=== PATIENT | male | born 1940 | race African-American/Black ===

== ENCOUNTER → 2016-09-24 | Outpatient (CLI) | payer MEDICARE, OTHER ==
[~2016-09-24] MED LIST: ALLO300T2; ATOR40TA52 PO; DIPH2.5T47 OR; ENO150SY SC; FAM20T OR; FURO20TA3 OR; GABA300C OR; LIS10T PO; METF-489 PO; POT10T PO; TRAM50TA2 PO; WARF5TAB71 PO
[2016-09-24 14:42] LABS: Basophils # (auto) 0.1 uL; Basophils % (auto) 0.6 % (0.0-2.0); Eosinophils # (auto) 0.2 uL; Eosinophils % (auto) 1.9 % (0.0-7.0); Hematocrit 41.5 % (41.0-53.0); Hemoglobin 13.5 g/dL (13.5-17.5); Lymphocytes # (auto) 2.5 uL; Lymphocytes % (auto) 21.7 % (10.0-50.0); Mean Corpuscular Hemoglobin 29.5 pg (28.0-32.0); Mean Corpuscular Hgb Conc. 32.6 g/dL (32.0-36.0); Mean Corpuscular Volume 90.7 fL (80.0-100.0); Mean Platelet Volume 9.2 fL (7.4-10.4); Monocytes % (auto) 8.4 % (0.0-12.0); Neutrophils # (auto) 7.7 uL; Neutrophils % (auto) 67.4 % (37.0-80.0); Platelet Count (auto) 267 10^3/uL (140-450); Red Cell Distribution Width 15.4 % (11.6-16.0); White Blood Cell 11.4 10^3/uL (4.4-10.8)
[2016-09-24 15:12] LABS: Albumin 3.7 g/dL (3.4-5.0); Bilirubin, Total 0.4 mg/dL (0.2-1.0); Potassium 4.1 mmol/L (3.5-5.1); Total Protein 7.2 g/dL (6.4-8.2); Uric Acid 4.9 mg/dL (3.5-7.2)
[2016-09-24 15:18] LABS: Urine Bilirubin Negative (Negative); Urine Blood Negative /uL (Negative); Urine Color Yellow (Yellow); Urine Glucose Normal (Normal); Urine Ketone Negative (Negative); Urine Nitrite Negative (Negative); Urine RBC 1 /hpf (0 - 3); Urine Urobilinogen Normal (Negative); Urine pH 6.5 (5.0-8.0)
== END | disposition home or self-care (01) ==
LOC: LAB 14:07
PROVIDERS: ATTEND Internal Medicine
DX: I10 Essential (primary) hypertension (principal); Z00.00 Encounter for general adult medical examination without abnormal findings; E11.9 Type 2 diabetes mellitus without complications; E55.9 Vitamin D deficiency, unspecified
CPT/HCPCS: 36415; 80053; 80061; 81001; 82043; 82306; 83036; 84443; 84550; 85025

== ENCOUNTER → 2017-09-17 | Outpatient (CLI) | payer MEDICARE, OTHER ==
[2017-09-17 11:14] LABS: Basophils # (auto) 0.1 uL; Basophils % (auto) 1.2 % (0.0-2.0); Eosinophils # (auto) 0.1 uL; Eosinophils % (auto) 1.6 % (0.0-7.0); Hematocrit 43.1 % (41.0-53.0); Lymphocytes # (auto) 2.1 uL; Lymphocytes % (auto) 24.8 % (10.0-50.0); Mean Corpuscular Hemoglobin 29.9 pg (28.0-32.0); Mean Corpuscular Hgb Conc. 32.5 g/dL (32.0-36.0); Mean Corpuscular Volume 91.9 fL (80.0-100.0); Monocytes # (auto) 0.7 uL; Monocytes % (auto) 7.5 % (0.0-12.0); Neutrophils # (auto) 5.6 uL; Neutrophils % (auto) 64.9 % (37.0-80.0); Nucleated Red Blood Cells % 0.1 %; Platelet Count (auto) 255 10^3/uL (140-450); Red Blood Cells 4.69 10^6/uL (4.5-5.90); Red Cell Distribution Width 14.3 % (11.8-14.3); White Blood Cell 8.7 10^3/uL (4.4-10.8)
[2017-09-17 12:05] LABS: Albumin 4.1 g/dL (3.4-5.0); BUN/Creatinine Ratio 12.6; Bilirubin, Total 0.8 mg/dL (0.2-1.0); Calcium 9.9 mg/dL (8.5-10.1); Potassium 4.5 mmol/L (3.5-5.1); Total Protein 7.8 g/dL (6.4-8.2)
== END | disposition home or self-care (01) ==
LOC: LAB 10:52
PROVIDERS: ATTEND Physician Assistant
DX: I10 Essential (primary) hypertension (principal); E11.9 Type 2 diabetes mellitus without complications; I26.99 Other pulmonary embolism without acute cor pulmonale; I82.531 Chronic embolism and thrombosis of right popliteal vein
CPT/HCPCS: 36415; 80053; 80061; 83036; 85025; 85379

== ENCOUNTER → 2018-05-04 | Day surgery (SDC) | payer MEDICARE, OTHER ==
[2018-04-30 13:42] LABS: Basophils # (auto) 0.1 uL; Basophils % (auto) 0.9 % (0.0-2.0); Eosinophils # (auto) 0.1 uL; Eosinophils % (auto) 1.7 % (0.0-7.0); Hemoglobin 13.9 g/dL (13.5-17.5); Lymphocytes # (auto) 2.3 uL; Lymphocytes % (auto) 29.8 % (10.0-50.0); Mean Corpuscular Hemoglobin 30.8 pg (28.0-32.0); Mean Corpuscular Hgb Conc. 33.2 g/dL (32.0-36.0); Mean Corpuscular Volume 92.9 fL (80.0-100.0); Monocytes # (auto) 0.7 uL; Monocytes % (auto) 8.6 % (0.0-12.0); Neutrophils # (auto) 4.6 uL; Platelet Count (auto) 222 10^3/uL (140-450); Red Blood Cells 4.52 10^6/uL (4.5-5.90); White Blood Cell 7.8 10^3/uL (4.4-10.8)
[2018-04-30 14:12] LABS: INR 2.46 (0.9-1.15); Partial Thromboplastin Time 37.8 sec (23.78-33.04)
[~2018-05-04] VITALS: Ht 177.8 cm; Wt 117.9 kg
[~2018-05-04] MED LIST changes: +MIDAZOLAM HCL 5 MG/ML-1ML VIAL ONE; +SODIUM CHLORIDE LOCK 10 ML ONE; +diphenhdrAMINE HCL 50 MG/1 ML VL ONE; +fentaNYL CITRATE 100 MCG/2 ML VL ONE
[2018-05-04 10:07] LABS: INR 1.07 (0.9-1.15); Partial Thromboplastin Time 27.6 sec (23.78-33.04); Prothrombin Time 11.4 sec (9.27-12.13)
[2018-05-04 11:48] VITALS: BP 160/88
== END | disposition home or self-care (01) ==
LOC: GI 08:05
PROVIDERS: ATTEND Internal Medicine Gastroenterology
DX: Z12.11 Encounter for screening for malignant neoplasm of colon (principal); D12.3 Benign neoplasm of transverse colon; K64.8 Other hemorrhoids; I82.409 Acute embolism and thrombosis of unspecified deep veins of unspecified lower extremity; E66.9 Obesity, unspecified; E11.9 Type 2 diabetes mellitus without complications; Z68.37 Body mass index [BMI] 37.0-37.9, adult; Z87.891 Personal history of nicotine dependence; Z82.49 Family history of ischemic heart disease and other diseases of the circulatory system; Z80.0 Family history of malignant neoplasm of digestive organs; Z79.01 Long term (current) use of anticoagulants; Z79.84 Long term (current) use of oral hypoglycemic drugs
CPT/HCPCS: 36415; 45380; 82962; 85025; 85610; 85730; 88305; G0500; J1200; J2250; J3010; J7030

== ENCOUNTER → 2020-10-05 | Day surgery (SDC) | payer MEDICARE, OTHER ==
[2020-10-02 11:04] LABS: Urine Bacteria FEW /hpf (None Seen); Urine Blood Negative /uL (Negative); Urine Specific Gravity 1.005 (1.001-1.035); Urine WBC <1 /hpf (0 - 3)
[2020-10-02 11:06] LABS: Basophils # (auto) 0.1 10 ^3/uL (0-0.2); Basophils % (auto) 1.3 % (0.0-2.0); Eosinophils # (auto) 0.1 10 ^3/uL (0-0.8); Eosinophils % (auto) 2.1 % (0.0-7.0); Hematocrit 41.2 % (41.0-53.0); Hemoglobin 13.9 g/dL (13.5-17.5); Lymphocytes # (auto) 1.6 10 ^3/uL (0.4-5.4); Lymphocytes % (auto) 22.1 % (10.0-50.0); Mean Corpuscular Hemoglobin 31.4 pg (28.0-32.0); Mean Corpuscular Hgb Conc. 33.7 g/dL (32.0-36.0); Monocytes # (auto) 0.4 10 ^3/uL (0-1.3); Monocytes % (auto) 6.2 % (0.0-12.0); Neutrophils # (auto) 4.9 10 ^3/uL (1.6-8.6); Neutrophils % (auto) 68.3 % (37.0-80.0); Nucleated Red Blood Cells % 0.1 %; Platelet Count (auto) 252 10^3/uL (140-450); Red Blood Cells 4.44 10^6/uL (4.5-5.90); Red Cell Distribution Width 14.5 % (11.8-14.3); White Blood Cell 7.2 10^3/uL (4.4-10.8)
[2020-10-02 11:25] LABS: Albumin 3.9 g/dL (3.4-5.0); Potassium 4.4 mmol/L (3.5-5.1)
[2020-10-02 11:30] LABS: BUN/Creatinine Ratio 9.9; INR 1.34 (0.9-1.15); Partial Thromboplastin Time 30.6 sec (23.0-31.2)
[2020-10-02 11:31] LABS: Bilirubin, Total 0.7 mg/dL (0.2-1.0); Total Protein 7.8 g/dL (6.4-8.2)
[~2020-10-05] VITALS: Ht 177.8 cm; Wt 122.9 kg
[~2020-10-05] MED LIST changes: +AMLO-489 PO; -ATOR40TA52 PO; +BENZ200C64 PO; +CIPROFLOXACIN 400MG/200ML 200 ML IV ONE; -DIPH2.5T47 OR; +DexAMETHasone SOD PHOS 10MG/1ML VIAL INJ ONE; -ENO150SY SC; -FAM20T OR; +GABA-339 PO; -GABA300C OR; +LABETALOL HCL 5 MG/ML 4ML SYRINGE IV PRN; -LIS10T PO; +METO-169 PO; +MIDAZOLAM HCL 1MG/1ML-2 ML VIAL IV PRN; +MIDAZOLAM HCL 1MG/1ML-2 ML VIAL ONE; -MIDAZOLAM HCL 5 MG/ML-1ML VIAL ONE; +MORPHINE SULFATE 4 MG/ML SYR/VIAL IV PRN; +ONDANSETRON HCL 4 MG/2 ML VIAL IV PRN; +PROPOFOL 10 MG/ML 20 ML IV ONE; +SACU1TAB PO; -SODIUM CHLORIDE LOCK 10 ML ONE; -TRAM50TA2 PO; -diphenhdrAMINE HCL 50 MG/1 ML VL ONE; +ePHEDrine SULFATE 50 MG/ML AMP IV PRN
[2020-10-05 13:55] VITALS: BP 137/91
== END | disposition home or self-care (01) ==
LOC: SUR 09:40
PROVIDERS: ATTEND Urology
DX: R97.20 Elevated prostate specific antigen [PSA] (principal); E66.9 Obesity, unspecified; E11.39 Type 2 diabetes mellitus with other diabetic ophthalmic complication; I10 Essential (primary) hypertension; I25.10 Atherosclerotic heart disease of native coronary artery without angina pectoris; Z20.822 Contact with and (suspected) exposure to COVID-19; Z98.890 Other specified postprocedural states; Z79.899 Other long term (current) drug therapy; Z86.718 Personal history of other venous thrombosis and embolism; Z68.38 Body mass index [BMI] 38.0-38.9, adult; Z87.891 Personal history of nicotine dependence
CPT/HCPCS: 36415; 55700; 80053; 81001; 82962; 85025; 85610; 85730; 88305; 88342; J0744; J1100; J2250; J2704; J3010; U0003; 76872

== ENCOUNTER → 2021-03-08 | Day surgery (SDC) | payer MEDICARE, OTHER ==
[2021-03-05 12:54] LABS: Urine WBC None Seen /hpf (0 - 3)
[2021-03-05 12:59] LABS: Basophils # (auto) 0.1 10 ^3/uL (0-0.2); Basophils % (auto) 1.1 % (0.0-2.0); Eosinophils # (auto) 0.1 10 ^3/uL (0-0.8); Eosinophils % (auto) 0.9 % (0.0-7.0); Hematocrit 39.5 % (41.0-53.0); Hemoglobin 13.2 g/dL (13.5-17.5); Lymphocytes % (auto) 20.4 % (10.0-50.0); Mean Corpuscular Hemoglobin 30.6 pg (28.0-32.0); Mean Corpuscular Hgb Conc. 33.3 g/dL (32.0-36.0); Mean Corpuscular Volume 91.9 fL (80.0-100.0); Monocytes # (auto) 0.7 10 ^3/uL (0-1.3); Neutrophils # (auto) 6.8 10 ^3/uL (1.6-8.6); Neutrophils % (auto) 70.6 % (37.0-80.0); Nucleated Red Blood Cells % 0.1 %; Red Cell Distribution Width 15.3 % (11.8-14.3); White Blood Cell 9.6 10^3/uL (4.4-10.8)
[2021-03-05 13:05] LABS: Urine Bacteria NONE SEEN /hpf (None Seen); Urine Blood Negative /uL (Negative); Urine Specific Gravity 1.008 (1.001-1.035)
[2021-03-05 13:17] LABS: Albumin 3.4 g/dL (3.4-5.0); Potassium 4.5 mmol/L (3.5-5.1)
[2021-03-05 13:21] LABS: BUN/Creatinine Ratio 11.3; Bilirubin, Total 0.7 mg/dL (0.2-1.0); Total Protein 7.5 g/dL (6.4-8.2)
[~2021-03-08] VITALS: Ht 177.8 cm; Wt 123.8 kg
[~2021-03-08] MED LIST changes: +ASCO500T11 PO; +ATO40T PO; +BUDE1AER6 IN; +CALC667C5 PO; +CHOL20007 OR; -CIPROFLOXACIN 400MG/200ML 200 ML IV ONE; +DIGO0.12 PO; -DexAMETHasone SOD PHOS 10MG/1ML VIAL INJ ONE; -LABETALOL HCL 5 MG/ML 4ML SYRINGE IV PRN; +LOPE1TAB9 PO; -METO-169 PO; +METO-289 PO; -MIDAZOLAM HCL 1MG/1ML-2 ML VIAL IV PRN; -MIDAZOLAM HCL 1MG/1ML-2 ML VIAL ONE; +MIDAZOLAM HCL 5 MG/ML-1ML VIAL ONE; -MORPHINE SULFATE 4 MG/ML SYR/VIAL IV PRN; -ONDANSETRON HCL 4 MG/2 ML VIAL IV PRN; +OXYB10GE TD; -PROPOFOL 10 MG/ML 20 ML IV ONE; +SODIUM CHLORIDE LOCK 10 ML ONE; +diphenhdrAMINE HCL 50 MG/1 ML VL ONE; -ePHEDrine SULFATE 50 MG/ML AMP IV PRN
[2021-03-08 10:10] VITALS: BP 167/95
== END | disposition home or self-care (01) ==
LOC: GI 08:03
PROVIDERS: ATTEND Internal Medicine Gastroenterology
DX: Z12.11 Encounter for screening for malignant neoplasm of colon (principal); D12.4 Benign neoplasm of descending colon; D12.7 Benign neoplasm of rectosigmoid junction; D12.8 Benign neoplasm of rectum; D12.3 Benign neoplasm of transverse colon; I10 Essential (primary) hypertension; E11.42 Type 2 diabetes mellitus with diabetic polyneuropathy; E78.00 Pure hypercholesterolemia, unspecified; M19.90 Unspecified osteoarthritis, unspecified site; M10.9 Gout, unspecified; Z95.0 Presence of cardiac pacemaker; Z98.41 Cataract extraction status, right eye; Z98.42 Cataract extraction status, left eye; J44.9 Chronic obstructive pulmonary disease, unspecified; Z87.891 Personal history of nicotine dependence; Z20.822 Contact with and (suspected) exposure to COVID-19
CPT/HCPCS: 36415; 45380; 45385; 80053; 81001; 82962; 85025; 88305; J1200; J2250; J3010; J7030; U0003; 99153; G0500

== ENCOUNTER → 2022-01-24 | Day surgery (SDC) | payer MEDICARE, OTHER ==
[2022-01-24] VITALS (7 sets, daily range): BP systolic 134–161; BP diastolic 80–95
[~2022-01-24] VITALS: Ht 177.8 cm; Wt 117.9 kg
[~2022-01-24] MED LIST changes: +ANGIOMAX 250 MG VIAL IV ONE; +CICL8SOL3 EX; +CYAN1TAB11 PO; +ECON1CRE6 TOP; +IOHEXOL 350 MG/ML 100ML IJ ONE; +LACT12CR17 EX; +LIDOCAINE 2%HCL (LOCAL ANESTH.) INJ 10ml MDV ONE; +MIDAZOLAM HCL 2MG/2ML 2ml VIAL (1mg/ml) ONE; -MIDAZOLAM HCL 5 MG/ML-1ML VIAL ONE; +SODIUM CHL 0.9% 0 ML ONE; -SODIUM CHLORIDE LOCK 10 ML ONE; +[UNRECOGNIZED DRUG - CODE] PO; -diphenhdrAMINE HCL 50 MG/1 ML VL ONE
== END | disposition home or self-care (01) ==
LOC: CATH 07:47
PROVIDERS: ATTEND Internal Medicine Cardiovascular Disease
DX: R94.39 Abnormal result of other cardiovascular function study (principal); I25.10 Atherosclerotic heart disease of native coronary artery without angina pectoris; I11.0 Hypertensive heart disease with heart failure; I50.9 Heart failure, unspecified; E78.5 Hyperlipidemia, unspecified; Z87.891 Personal history of nicotine dependence; E11.9 Type 2 diabetes mellitus without complications; Z82.49 Family history of ischemic heart disease and other diseases of the circulatory system; Z80.8 Family history of malignant neoplasm of other organs or systems; Z20.822 Contact with and (suspected) exposure to COVID-19
CPT/HCPCS: 93452; 93567; C1894; J1644; J2001; J2250; J3010; J7030; Q9967; U0003

== ENCOUNTER → 2022-03-18 | Outpatient (CLI) | payer MEDICARE, OTHER ==
[~2022-03-18] MED LIST changes: -ANGIOMAX 250 MG VIAL IV ONE; -IOHEXOL 350 MG/ML 100ML IJ ONE; -LIDOCAINE 2%HCL (LOCAL ANESTH.) INJ 10ml MDV ONE; -MIDAZOLAM HCL 2MG/2ML 2ml VIAL (1mg/ml) ONE; -SODIUM CHL 0.9% 0 ML ONE; -fentaNYL CITRATE 100 MCG/2 ML VL ONE
[2022-03-18 13:22] LABS: Basophils # (auto) 0.1 10 ^3/uL (0-0.2); Basophils % (auto) 0.8 % (0.0-2.0); Eosinophils # (auto) 0.2 10 ^3/uL (0-0.8); Eosinophils % (auto) 2.2 % (0.0-7.0); Hematocrit 37.9 % (41.0-53.0); Hemoglobin 12.1 g/dL (13.5-17.5); Lymphocytes # (auto) 1.3 10 ^3/uL (0.4-5.4); Mean Corpuscular Hemoglobin 29.7 pg (28.0-32.0); Mean Corpuscular Volume 92.8 fL (80.0-100.0); Monocytes # (auto) 0.5 10 ^3/uL (0-1.3); Monocytes % (auto) 6.4 % (0.0-12.0); Neutrophils # (auto) 5.4 10 ^3/uL (1.6-8.6); Neutrophils % (auto) 72.6 % (37.0-80.0); Red Blood Cells 4.08 10^6/uL (4.5-5.90); Red Cell Distribution Width 14.3 % (11.8-14.3); White Blood Cell 7.4 10^3/uL (4.4-10.8)
[2022-03-18 13:53] LABS: Albumin 3.3 g/dL (3.4-5.0)
[2022-03-18 14:04] LABS: BUN/Creatinine Ratio 10.9; Bilirubin, Total 0.4 mg/dL (0.2-1.0); Calcium 9.4 mg/dL (8.5-10.1); Total Protein 7.2 g/dL (6.4-8.2)
[2022-03-18 15:52] LABS: Free T4 (Free Thyroxine) 1.1 ng/dL (0.89-1.76)
[2022-03-18 15:53] LABS: Prostate Specific Antigen 0.06 ng/mL (0.0-4.0)
== END | disposition home or self-care (01) ==
LOC: LAB 11:37
PROVIDERS: ATTEND Nurse Practitioner Family
DX: C61 Malignant neoplasm of prostate (principal); I10 Essential (primary) hypertension; E11.42 Type 2 diabetes mellitus with diabetic polyneuropathy; E78.00 Pure hypercholesterolemia, unspecified; Z00.00 Encounter for general adult medical examination without abnormal findings
CPT/HCPCS: 36415; 80053; 80061; 83036; 84153; 84439; 84443; 85025

== ENCOUNTER → 2022-04-22 | Outpatient (CLI) | payer MEDICARE, OTHER ==
[~2022-04-22] MED LIST changes: +FUROSEMIDE 100 MG/10ML VIAL IV ONE; +FUROSEMIDE 20 MG/2 ML VIAL ONE; +FUROSEMIDE INJECTION 10 ML ONE; +POTASSIUM CHL 20 Meq TABLET PO ONE
[2022-04-22 11:03] VITALS: BP 140/80
[2022-04-22 11:54] VITALS: BP 147/83
== END | disposition home or self-care (01) ==
LOC: CHF HDHVI 11:07
PROVIDERS: ATTEND Internal Medicine Cardiovascular Disease
DX: I87.313 Chronic venous hypertension (idiopathic) with ulcer of bilateral lower extremity (principal); I10 Essential (primary) hypertension; E78.00 Pure hypercholesterolemia, unspecified; E11.42 Type 2 diabetes mellitus with diabetic polyneuropathy; Z85.46 Personal history of malignant neoplasm of prostate
CPT/HCPCS: 96374; G0463; J1940

== ENCOUNTER → 2022-04-22 | Outpatient (CLI) | payer MEDICARE, OTHER ==
[~2022-04-22] MED LIST changes: -FUROSEMIDE 100 MG/10ML VIAL IV ONE; -FUROSEMIDE 20 MG/2 ML VIAL ONE; -FUROSEMIDE INJECTION 10 ML ONE; -POTASSIUM CHL 20 Meq TABLET PO ONE
== END | disposition home or self-care (01) ==
LOC: LAB 12:30
PROVIDERS: ATTEND Urology
DX: C61 Malignant neoplasm of prostate (principal)
CPT/HCPCS: 84153

== ENCOUNTER → 2022-04-23 | Outpatient (CLI) | payer MEDICARE, OTHER | END | disposition home or self-care (01) | LOC: Rad HDHVI 12:53 | PROVIDERS: ATTEND Internal Medicine Cardiovascular Disease | DX: I08.8 Other rheumatic multiple valve diseases (principal); R06.02 Shortness of breath; I10 Essential (primary) hypertension | CPT/HCPCS: 93306 ==

== ENCOUNTER → 2022-04-29 | Outpatient (CLI) | payer MEDICARE, OTHER | END | disposition home or self-care (01) | LOC: Rad HDHVI 11:20 | PROVIDERS: ATTEND Internal Medicine Cardiovascular Disease | DX: I65.23 Occlusion and stenosis of bilateral carotid arteries (principal); I10 Essential (primary) hypertension | CPT/HCPCS: 93880 ==

== ENCOUNTER → 2022-05-02 | Outpatient (CLI) | payer MEDICARE, OTHER ==
[~2022-05-02] VITALS: Ht 175.3 cm; Wt 119.7 kg
[~2022-05-02] MED LIST changes: +ADENOSINE 101 MG in GIVE UN-DILUTED 0 ML IV ONE; +ADENOSINE 90 MG/30 ML INJ IV ONE
== END | disposition home or self-care (01) ==
LOC: Rad HDHVI 08:40
PROVIDERS: ATTEND Internal Medicine Cardiovascular Disease
DX: I25.10 Atherosclerotic heart disease of native coronary artery without angina pectoris (principal); I11.0 Hypertensive heart disease with heart failure; I50.33 Acute on chronic diastolic (congestive) heart failure; E11.9 Type 2 diabetes mellitus without complications; E78.00 Pure hypercholesterolemia, unspecified; Z82.49 Family history of ischemic heart disease and other diseases of the circulatory system
CPT/HCPCS: 78452; 93005; 96374; 96375; A9500; J0153

== ENCOUNTER → 2022-07-02 | Outpatient (CLI) | payer MEDICARE, OTHER ==
[~2022-07-02] MED LIST changes: -ADENOSINE 101 MG in GIVE UN-DILUTED 0 ML IV ONE; -ADENOSINE 90 MG/30 ML INJ IV ONE
[2022-07-02 13:08] LABS: Basophils # (auto) 0.1 10 ^3/uL (0-0.2); Basophils % (auto) 0.9 % (0.0-2.0); Eosinophils # (auto) 0.1 10 ^3/uL (0-0.8); Eosinophils % (auto) 1.8 % (0.0-7.0); Hematocrit 38.1 % (41.0-53.0); Hemoglobin 12.3 g/dL (13.5-17.5); Lymphocytes # (auto) 1.4 10 ^3/uL (0.4-5.4); Lymphocytes % (auto) 19.1 % (10.0-50.0); Mean Corpuscular Hemoglobin 29.9 pg (28.0-32.0); Mean Corpuscular Hgb Conc. 32.3 g/dL (32.0-36.0); Mean Corpuscular Volume 92.7 fL (80.0-100.0); Monocytes # (auto) 0.6 10 ^3/uL (0-1.3); Monocytes % (auto) 7.8 % (0.0-12.0); Neutrophils # (auto) 5.3 10 ^3/uL (1.6-8.6); Neutrophils % (auto) 70.4 % (37.0-80.0); Red Cell Distribution Width 15.6 % (11.8-14.3); White Blood Cell 7.5 10^3/uL (4.4-10.8)
[2022-07-02 13:12] LABS: Albumin 3.8 g/dL (3.4-5.0); BUN/Creatinine Ratio 15.6; Calcium 9.5 mg/dL (8.5-10.1); Potassium 4.9 mmol/L (3.5-5.1)
[2022-07-02 13:16] LABS: Bilirubin, Total 0.6 mg/dL (0.2-1.0); Total Protein 6.8 g/dL (6.4-8.2)
[2022-07-02 13:21] LABS: Free T4 (Free Thyroxine) 1.09 ng/dL (0.89-1.76); Prostate Specific Antigen 0.06 ng/mL (0.0-4.0)
[2022-07-02 13:23] LABS: Urine Blood Negative /uL (Negative)
== END | disposition home or self-care (01) ==
LOC: LAB 11:19
PROVIDERS: ATTEND Internal Medicine Cardiovascular Disease
DX: I10 Essential (primary) hypertension (principal); E55.9 Vitamin D deficiency, unspecified
CPT/HCPCS: 36415; 80053; 80061; 81003; 82306; 82607; 83036; 84153; 84403; 84439; 84443; 85025

== ENCOUNTER → 2022-07-19 | Outpatient (CLI) | payer MEDICARE, OTHER | END | disposition home or self-care (01) | LOC: LAB 11:30 | PROVIDERS: ATTEND Urology | DX: C61 Malignant neoplasm of prostate (principal) | CPT/HCPCS: 84154 ==

== ENCOUNTER → 2022-10-16 | Outpatient (CLI) | payer MEDICARE, OTHER | END | disposition home or self-care (01) | LOC: LAB 11:56 | PROVIDERS: ATTEND Urology | DX: C61 Malignant neoplasm of prostate (principal) | CPT/HCPCS: 84153 ==

== ENCOUNTER → 2023-01-20 | Outpatient (CLI) | payer MEDICARE, OTHER ==
[~2023-01-20] MED LIST changes: -AMLO-489 PO; +AMLO1TAB22 PO; +CICL8SOL21 EX; -CICL8SOL3 EX; +WARF-66 PO; -WARF5TAB71 PO
== END | disposition home or self-care (01) ==
LOC: Rad HDHVI 14:51
PROVIDERS: ATTEND Internal Medicine Cardiovascular Disease
DX: I08.3 Combined rheumatic disorders of mitral, aortic and tricuspid valves (principal); I11.9 Hypertensive heart disease without heart failure; Z95.0 Presence of cardiac pacemaker
CPT/HCPCS: 93306

== ENCOUNTER → 2023-03-10 | Outpatient (CLI) | payer MEDICARE, OTHER | END | disposition home or self-care (01) | LOC: Rad HDHVI 15:55 | PROVIDERS: ATTEND Internal Medicine Cardiovascular Disease | DX: M16.12 Unilateral primary osteoarthritis, left hip (principal) | CPT/HCPCS: 73700 ==

== ENCOUNTER → 2023-07-16 | Outpatient (CLI) | payer MEDICARE, OTHER ==
[~2023-07-16] MED LIST changes: +ALLO300T2 PO; +ASCO500C49 PO; +ATOR40TA52 PO; +CHOL1TAB42 PO; +FURO40TA4 PO; +LISI40TA16 PO; +LOPE2CAP PO; +METF-370 PO; +METO-6 PO; +MULTCAP45 PO; +POTA10TA51 PO; +WARF-113 PO
== END | disposition home or self-care (01) ==
LOC: Rad HDHVI 09:38
PROVIDERS: ATTEND Internal Medicine Cardiovascular Disease
DX: I65.23 Occlusion and stenosis of bilateral carotid arteries (principal); I10 Essential (primary) hypertension
CPT/HCPCS: 93880

== ENCOUNTER → 2023-08-04 | Outpatient (CLI) | payer MEDICARE, OTHER ==
[~2023-08-04] VITALS: Ht 177.8 cm; Wt 112.9 kg
[~2023-08-04] MED LIST changes: +ADENOSINE 90 MG/30 ML INJ IV ONE; +ADENOSINE 95 MG in GIVE UN-DILUTED 0 ML IV ONE
== END | disposition home or self-care (01) ==
LOC: Rad HDHVI 09:14
PROVIDERS: ATTEND Internal Medicine Cardiovascular Disease
DX: I11.0 Hypertensive heart disease with heart failure (principal); I50.9 Heart failure, unspecified; E11.42 Type 2 diabetes mellitus with diabetic polyneuropathy; I82.402 Acute embolism and thrombosis of unspecified deep veins of left lower extremity; I48.0 Paroxysmal atrial fibrillation; I26.99 Other pulmonary embolism without acute cor pulmonale; E78.00 Pure hypercholesterolemia, unspecified
CPT/HCPCS: 78452; 93005; 96374; 96375; A9500; J0153

== ENCOUNTER → 2023-09-01 | Outpatient (CLI) | payer MEDICARE, OTHER ==
[~2023-09-01] MED LIST changes: -ADENOSINE 90 MG/30 ML INJ IV ONE; -ADENOSINE 95 MG in GIVE UN-DILUTED 0 ML IV ONE
[2023-09-01 11:40] LABS: Alanine Aminotransferase 12 U/L (7-40); Albumin 4.4 g/dL (3.2-4.8); Alkaline Phosphatase 115 U/L (46-116); Anion Gap 7 (5-15); Aspartate Aminotransferase 15 U/L (13-40); BUN/Creatinine Ratio 10.7 (10.0-20.0); Blood Urea Nitrogen 14 mg/dL (9-23); Carbon Dioxide 27 mmol/L (20-30); Chloride 108 mmol/L (98-107); Cholesterol 92 mg/dL (< 200); Glucose 153 mg/dL (74-106); LDL Cholesterol 34 mg/dL (< 100); Potassium 4.4 mmol/L (3.5-5.1); Sodium 142 mmol/L (136-145); Triglycerides 106 mg/dL (< 150)
[2023-09-01 11:41] LABS: Bilirubin, Total 0.7 mg/dL (0.2-1.0); HDL Cholesterol 39 mg/dL (40-59); Total Protein 6.6 g/dL (5.7-8.2)
[2023-09-01 12:54] LABS: Creatinine, Urine 30.36 mg/dL (30.0-125.0)
== END | disposition home or self-care (01) ==
LOC: LAB 10:38
PROVIDERS: ATTEND Nurse Practitioner Family
DX: E11.42 Type 2 diabetes mellitus with diabetic polyneuropathy (principal); I10 Essential (primary) hypertension
CPT/HCPCS: 36415; 80053; 80061; 82043; 82570; 83036; 84439; 84443

== ENCOUNTER → 2024-04-15 | Outpatient (CLI) | payer MEDICARE, OTHER ==
[~2024-04-15] MED LIST changes: -ATO40T PO; +ATOR-507 PO; +POTA-36 PO; -POTA10TA51 PO
[2024-04-15 12:10] LABS: Basophils # (auto) 0.1 10 ^3/uL (0-0.2); Basophils % (auto) 0.8 % (0.0-2.0); Eosinophils # (auto) 0.1 10 ^3/uL (0-0.8); Eosinophils % (auto) 1.1 % (0.0-7.0); Hematocrit 34.8 % (41.0-53.0); Hemoglobin 11.6 g/dL (13.5-17.5); Lymphocytes # (auto) 0.9 10 ^3/uL (0.4-5.4); Lymphocytes % (auto) 11.5 % (10.0-50.0); Mean Corpuscular Hgb Conc. 33.4 g/dL (32.0-36.0); Mean Corpuscular Volume 95.8 fL (80.0-100.0); Monocytes # (auto) 0.5 10 ^3/uL (0-1.3); Monocytes % (auto) 6.4 % (0.0-12.0); Neutrophils # (auto) 6.4 10 ^3/uL (1.6-8.6); Neutrophils % (auto) 80.2 % (37.0-80.0); Platelet Count (auto) 254 10^3/uL (140-450); Red Blood Cells 3.63 10^6/uL (4.5-5.90); Red Cell Distribution Width 15.2 % (11.8-14.3)
[2024-04-15 12:45] LABS: Urine Blood Negative /uL (Negative); Urine Clarity Clear (Clear); Urine Color Light-Yellow (Yellow); Urine Protein, UAD TRACE (Negative); Urine Specific Gravity 1.005 (1.001-1.035); Urine Urobilinogen Normal (Negative); Urine pH 5.5 (5.0-9.0)
[2024-04-15 13:47] LABS: Alanine Aminotransferase 16 U/L (7-40); Alkaline Phosphatase 127 U/L (46-116); Anion Gap 11 (5-15); BUN/Creatinine Ratio 8.8 (10.0-20.0); Blood Urea Nitrogen 13 mg/dL (9-23); Calcium 10.1 mg/dL (8.7-10.4); Carbon Dioxide 23 mmol/L (20-31); Chloride 109 mmol/L (98-107); Glucose 145 mg/dL (74-106); LDL Cholesterol 37 mg/dL (< 100); Potassium 4.1 mmol/L (3.5-5.1); Sodium 143 mmol/L (136-145); Triglycerides 154 mg/dL (< 150)
[2024-04-15 13:48] LABS: Albumin 4.5 g/dL (3.2-4.8); Aspartate Aminotransferase 13 U/L (13-40); Cholesterol 97 mg/dL (< 200); HDL Cholesterol 38 mg/dL (40-59)
[2024-04-15 13:49] LABS: Bilirubin, Direct 0.2 mg/dL (<0.3); Bilirubin, Total 0.7 mg/dL (0.2-1.0)
== END | disposition home or self-care (01) ==
LOC: LAB 11:50
PROVIDERS: ATTEND Internal Medicine Cardiovascular Disease
DX: C61 Malignant neoplasm of prostate (principal); I10 Essential (primary) hypertension; E11.9 Type 2 diabetes mellitus without complications; D51.3 Other dietary vitamin B12 deficiency anemia; D64.9 Anemia, unspecified; R00.2 Palpitations; R53.1 Weakness; R30.0 Dysuria
CPT/HCPCS: 36415; 80048; 80061; 80076; 81003; 83036; 84403; 84439; 84443; 85025

== ENCOUNTER → 2024-06-14 | Outpatient (CLI) | payer MEDICARE, OTHER ==
[2024-06-15 09:07] LABS: PSA Free <0.02 ng/mL; Prostate Specific Antigen <0.1 ng/mL (0.0-4.0)
== END | disposition home or self-care (01) ==
LOC: LAB 11:03
PROVIDERS: ATTEND Urology
DX: C61 Malignant neoplasm of prostate (principal)
CPT/HCPCS: 84154

== ENCOUNTER → 2024-09-27 | Outpatient (CLI) | payer MEDICARE, OTHER ==
[2024-09-27 11:18] LABS: Basophils # (auto) 0.1 10 ^3/uL (0-0.2); Basophils % (auto) 0.7 % (0.0-2.0); Eosinophils # (auto) 0 10 ^3/uL (0-0.8); Eosinophils % (auto) 0.6 % (0.0-7.0); Hematocrit 34.7 % (41.0-53.0); Hemoglobin 11.5 g/dL (13.5-17.5); Lymphocytes # (auto) 0.8 10 ^3/uL (0.4-5.4); Lymphocytes % (auto) 11.1 % (10.0-50.0); Mean Corpuscular Hgb Conc. 33.1 g/dL (32.0-36.0); Mean Corpuscular Volume 93.8 fL (80.0-100.0); Monocytes # (auto) 0.5 10 ^3/uL (0-1.3); Monocytes % (auto) 6.5 % (0.0-12.0); Neutrophils # (auto) 5.9 10 ^3/uL (1.6-8.6); Neutrophils % (auto) 81.1 % (37.0-80.0); Platelet Count (auto) 240 10^3/uL (140-450); Red Cell Distribution Width 15.4 % (11.8-14.3); White Blood Cell 7.3 10^3/uL (4.4-10.8)
[2024-09-27 11:55] LABS: Alanine Aminotransferase 12 U/L (7-40); Albumin 4.7 g/dL (3.2-4.8); Alkaline Phosphatase 116 U/L (46-116); Anion Gap 10 (5-15); Blood Urea Nitrogen 14 mg/dL (9-23); Calcium 10.4 mg/dL (8.7-10.4); Carbon Dioxide 24 mmol/L (20-31); Cholesterol 110 mg/dL (< 200); LDL Cholesterol 49 mg/dL (< 100); Potassium 4.1 mmol/L (3.5-5.1); Sodium 143 mmol/L (136-145); Total Protein 7.2 g/dL (5.7-8.2); Triglycerides 113 mg/dL (< 150)
[2024-09-27 11:56] LABS: Aspartate Aminotransferase 11 U/L (13-40); Bilirubin, Total 0.7 mg/dL (0.2-1.0); Chloride 109 mmol/L (98-107); Glucose 158 mg/dL (74-106); HDL Cholesterol 37 mg/dL (40-59)
[2024-09-27 12:55] LABS: Creatinine, Urine 122.04 mg/dL (30.0-125.0)
== END | disposition home or self-care (01) ==
LOC: LAB 11:00
PROVIDERS: ATTEND Nurse Practitioner Family
DX: E11.9 Type 2 diabetes mellitus without complications (principal); E78.00 Pure hypercholesterolemia, unspecified; R35.1 Nocturia
CPT/HCPCS: 36415; 80053; 80061; 82043; 82570; 84153; 84443; 85025

== ENCOUNTER 2025-02-16 07:45 | Outpatient (CLI) | payer MEDICARE, OTHER ==
[~2025-02-16] VITALS: Ht 177.8 cm; Wt 109.8 kg
[2025-02-16] MEDS: REGADENOSON 0.4 MG/5 ML SYRG IV ONE ×2 (09:08→09:52)
== END 2025-02-16 17:00 | disposition home or self-care (01) ==
LOC: XYW 07:45
PROVIDERS: ATTEND Internal Medicine
DX: Z01.810 Encounter for preprocedural cardiovascular examination (principal); M16.12 Unilateral primary osteoarthritis, left hip; I48.0 Paroxysmal atrial fibrillation; I10 Essential (primary) hypertension; E66.9 Obesity, unspecified; E11.9 Type 2 diabetes mellitus without complications
CPT/HCPCS: 93017; J2785

== ENCOUNTER 2025-02-28 06:06 | Inpatient (IN) | payer MEDICARE, OTHER ==
[2025-02-25 09:40] LABS: Hematocrit 32.8 % (41.0-53.0); Hemoglobin 10.9 g/dL (13.5-17.5); Mean Corpuscular Hemoglobin 31.7 pg (28.0-32.0); Mean Corpuscular Volume 95.3 fL (80.0-100.0); Nucleated Red Blood Cells % 0.0 %
[2025-02-25 09:46] LABS: Urine Protein, UAD 1+ (Negative)
[2025-02-25 09:51] LABS: INR 1.97 (0.9-1.15); Partial Thromboplastin Time 32.8 SEC (24.5-34.5); Prothrombin Time 19.5 sec (9.3-11.8)
[2025-02-25 10:02] LABS: Alanine Aminotransferase 12 U/L (7-40); Albumin 4.5 g/dL (3.2-4.8); Alkaline Phosphatase 113 U/L (46-116); Anion Gap 10 (5-15); BUN/Creatinine Ratio 8.5 (10.0-20.0); Blood Urea Nitrogen 13 mg/dL (9-23); Calcium 9.6 mg/dL (8.7-10.4); Carbon Dioxide 23 mmol/L (20-31); Potassium 3.9 mmol/L (3.5-5.1); Total Protein 6.7 g/dL (5.7-8.2)
[2025-02-25 10:03] LABS: Bilirubin, Total 0.7 mg/dL (0.2-1.0); Chloride 113 mmol/L (98-107); Glucose 161 mg/dL (74-106); Sodium 146 mmol/L (136-145)
[2025-02-28] VITALS (8 sets, daily range): BP systolic 102–127; BP diastolic 65–89; PULSE 62–80; RESP 12–20; TEMP 97.7; O2SAT 94–99
[~2025-02-28] VITALS: Ht 177.8 cm; Wt 108.0 kg
[~2025-02-28 06:06] MED LIST changes: +ACET-1080 PO; -ALLO300T2; -AMLO1TAB22 PO; +AMLO1TAB23 PO; -ASCO500C49 PO; -ATOR40TA52 PO; -BENZ200C64 PO; -BUDE1AER6 IN; -CHOL20007 OR; -CICL8SOL21 EX; -ECON1CRE6 TOP; -FURO40TA4 PO; -LACT12CR17 EX; -LISI40TA16 PO; -LOPE1TAB9 PO; -METF-370 PO; -METO-289 PO; +MULT-688 PO; -OXYB10GE TD; -POTA-36 PO; +TOLT1CAP29 PO; +TRAM-626 PO; -WARF-113 PO
[2025-02-28] MEDS ORDERED: ONDANSETRON HCL 4 MG/2 ML VIAL ONE (07:20)
[2025-02-28] MEDS ORDERED: fentaNYL CITRATE 100 MCG/2 ML VL ONE (07:20)
[2025-02-28] MEDS ORDERED: MIDAZOLAM HCL 2MG/2ML 2ml VIAL (1mg/ml) ONE (07:20)
[2025-02-28] MEDS ORDERED: MORPHINE SULF PF 5 MG/10 ML VIAL ONE (07:20)
[2025-02-28] MEDS ORDERED: SODIUM CHLORIDE LOCK 10 ML ONE (07:20)
[2025-02-28] MEDS ORDERED: LIDOCAINE 1% INJ PF 5ML AMP ONE (07:20)
[2025-02-28] MEDS ORDERED: BUPIVACAINE/DEXTROSE MPF 0.75% 2 ML AMP IT ONE (07:20)
[2025-02-28] MEDS ORDERED: KETAMINE 50mg/ML 10ml Vial 10 ML ONE (07:20)
[2025-02-28] MEDS: CELECOXIB 100 MG CAP PO ONE (08:00)
[2025-02-28] MEDS: ACETAMINOPHEN IV 1000 MG/100ML (10MG/ML) IV ONE (08:00)
[2025-02-28] MEDS: PREGABALIN CAPSULE 75 MG CAP PO ONE (08:00)
[2025-02-28 08:04] LABS: INR 1.73 (0.9-1.15); Partial Thromboplastin Time 30.7 SEC (24.5-34.5); Prothrombin Time 17.4 sec (9.3-11.8)
[2025-02-28] MEDS ORDERED: LIDOCAINE HCL 2% TOP JELLY 5ML TOP ONE (08:15)
[2025-02-28] MEDS: ceFAZolin 2 GM/D5W50ml 50 ML IV ONE (08:20)
[2025-02-28] MEDS: CEFEPIME 1GM/50ML 50 ML IV ONE (08:30)
[2025-02-28] MEDS: MORPHINE SULF PF 5 MG/10 ML VIAL ONE (09:18)
[2025-02-28] MEDS: BUPIVACAINE 0.25% INJ 50ML VIAL ONE (09:18)
[2025-02-28] MEDS: KETOROLAC TROMETH 30 MG/ML 1ML VIAL ONE (09:18)
[2025-02-28] MEDS: VANCOMYCIN HCL 1000 MG VL ONE (09:21)
[2025-02-28] MEDS: TRANEXAMIC ACID 20 ML ONE (09:24)
[2025-02-28] MEDS ORDERED: HYDROmorphone HCL 2 MG/ML VL/or syr IV PRN ×2 (09:30→11:00)
[2025-02-28] MEDS ORDERED: ONDANSETRON HCL 4 MG/2 ML VIAL IV PRN (09:30)
[2025-02-28] MEDS ORDERED: MORPHINE SULFATE INJ 2 MG/ml SYRG IV PRN ×2 (09:30→11:00)
[2025-02-28] MEDS ORDERED: LACTATED RINGER'S 1,000 ML IV SCH (09:30)
[2025-02-28] MEDS ORDERED: NITROGLYCERIN 0.4 MG SL TAB SL PRN (09:30)
[2025-02-28] MEDS ORDERED: GLYCOPYRROLATE 0.2 MG/ML 1ML VIAL ONE (09:49)
[2025-02-28] MEDS ORDERED: NEOSTIGMINE 1 MG/ML INJ (10mg/10ML VIAL) ONE (09:49)
[2025-02-28] MEDS: ENOXAPARIN SOD 40 MG/0.4 ML SYRINGE SC SCH (10:00)
[2025-02-28] MEDS: DOCUSATE SOD 100 MG CAP PO SCH (10:00)
--- NOTE | 2025-02-28 10:06 | DVHOP2 ---
Operative Report - 2 Report Details Date: 02/28/25 Preop Diagnosis: Left Hip Osteoarthritis Postop Diagnosis: same Surgeon: Louis Perdomo MD Head Butler: Terri Anesthesiologist: Primo Anesthesia: General Consent: The patient was informed of the risks and benefits of the procedure. These include but are not limited to complications of anesthesia, postoperative infection, incomplete relief of symptoms, recurrence of symptoms, damage to blood vessels, nerves and tendons, deep venous thrombosis, pulmonary embolism and possible need for repeat surgery in the future. Estimated Blood Loss: 400l Name of Procedure Performed Left Total Hip Arthroplasty Procedure Details Procedure Details: The patient was positioned in the lateral decubitus position with appropriate padding to the axilla, pelvis, and lower extremities. The nonoperative leg was fitted with a compression stocking and sequential compression device. The operative site was prepped and draped in the standard sterile fashion. The orthopedic team utilized body exhaust suits. A posterior approach was utilized. A skin incision was made posterior to the greater trochanter. Dissection was carried through subcutaneous tissue, and the fascia of the gluteus madonna was split in line with its fibers, including a portion of the distal iliotibial band. A Charnley self-retaining retractor was placed, with care taken to protect the sciatic nerve. The hip was internally rotated, and the short external rotators were detached from the greater trochanter. Capsulotomy was performed, and the hip was dislocated posteriorly. Nakul retractors were used to protect soft tissues. The femoral neck osteotomy was performed according to preoperative templating, and the femoral head was removed and measured. Attention was then directed to the acetabulum. Acetabular retractors were placed for exposure. The labrum and pulvinar were excised. Sequential reaming was performed to the appropriate size. A trial acetabular component was inserted and found to have satisfactory fit. The definitive acetabular component was implanted at approximately 45 abduction and 20 anteversion, with fixation augmented by 3 screw(s). The liner was seated and tested for stability. The femur was then prepared. A femoral elevator was used for exposure, and the piriformis was excised. A Charnley awl, box osteotome, and lateralizing reamer were used to access the proximal femur. Sequential reaming and broaching were performed, and a trial broach was selected. The calcar was planed. Multiple trial reductions were performed to assess stability, range of motion, and leg length. The final size 7 High Offset Wiley Z1 femoral component was implanted. The trunnion was cleaned and dried, and the femoral head was impacted. The hip was reduced and stability confirmed. The wound was irrigated with pulsatile lavage and a dilute betadine solution. Local anesthetic cocktail was injected into the soft tissues. The capsule and short external rotators were repaired with #5 FiberWire. The fascia was closed with #1 absorbable suture, and the subcutaneous tissue with 2-0 absorbable suture. Skin was closed with makenna. A sterile dressing was applied, and an abduction pillow was placed. The patient was transferred to the recovery room in stable condition. Condition Fair Disposition Home with Health Services LOUIS PERDOMO DO Feb 28, 2025 10:06
[2025-02-28] MEDS ORDERED: MORPHINE SULFATE 4 MG/ML SYR/VIAL IV PRN (11:00)
[2025-02-28] MEDS: METOCLOPRAMIDE HCL 5MG/ml INJ 2ml VIAL IV ONE (11:00)
[2025-02-28] MEDS: HYDROmorphone HCL 2 MG/ML VL/or syr IV PRN (11:05)
[2025-02-28] MEDS: HYDROmorphone HCL 2 MG/ML VL/or syr ONE (11:14)
[2025-02-28] MEDS: TETRACAINE 1% INJ 2 ML VIAL IJ ONE (11:18)
[2025-02-28] MEDS: SUCCINYLCHOLINE CHLORIDE 20 MG/ML 10ML VIAL IV ONE (11:19)
[2025-02-28] MEDS: ACETAMINOPHEN IV 100 ML IV ONE (11:20)
[2025-02-28] MEDS: CELECOXIB 100 MG CAP ONE (11:20)
[2025-02-28] MEDS: PREGABALIN CAPSULE 75 MG CAP ONE (11:20)
--- NOTE | 2025-02-28 12:51 | DVH ---
EXAM: XY PELVIS AP CLINICAL INDICATION: postop TECHNIQUE: XY PELVIS AP Comparison: None FINDINGS/IMPRESSION: There is no evidence of acute fracture or dislocation. Left hip arthroplasty. Surgical skin makenna present. Advanced right hip osteoarthritis. The alignment is anatomical. There is no radiopaque foreign body.
--- NOTE | 2025-02-28 13:13 | DVHHP2 ---
Review of Systems Allergies: Coded Allergies: NO KNOWN ALLERGIES (Unverified , 02/16/25) Medications Current Medications Medications Dose Ordered Sig/Ramona Route Start Time Stop Time Status Last Admin Dose Admin Cefazolin Sodium 50 ml @ 50 mls/hr Q6H IV 02/28/25 09:30 02/28/25 22:29 Acetaminophen 650 mg Q6HP PRN PO 02/28/25 09:30 Oxycodone/ Acetaminophen 1 tab Q4HP PRN PO 02/28/25 09:30 Ondansetron HCl 4 mg Q6HP PRN IV 02/28/25 09:30 Docusate Sodium 100 mg Q12HR PO 02/28/25 10:00 Enoxaparin Sodium 40 mg DAILY SC 02/28/25 10:00 Nitroglycerin 0.4 mg Q5MINP PRN SL 02/28/25 09:30 Morphine Sulfate 2 mg Q30M PRN IV 02/28/25 09:30 Morphine Sulfate 2 mg Q4H PRN IV 02/28/25 11:00 02/28/25 15:01 Lactated Ringer's 1,000 ml @ 75 mls/hr [id number] IV 02/28/25 13:15 UNV Hydromorphone HCl 1 mg Q3HP PRN IV 02/28/25 13:15 UNV Metoprolol Succinate 50 mg DAILY PO 03/01/25 10:00 UNV Sacubitril/ Valsartan 1 tab BID PO 02/28/25 22:00 UNV Digoxin 0.125 mg DAILY PO 03/01/25 10:00 UNV Allopurinol 100 mg DAILY PO 03/01/25 10:00 UNV Exam Vital Signs Vital Signs Date Time Temp Pulse Resp B/P (MAP) Pulse Ox O2 Delivery O2 Flow Rate FiO2 02/28/25 11:17 66 19 150/80 02/28/25 10:32 94 Mask 8.0 02/28/25 10:32 94 02/28/25 06:49 98.5 98.5 Labs/Xrays Labs Test 02/28/25 07:25 02/28/25 07:20 02/25/25 09:20 Range/Units Prothrombin Time 17.4 H 9.3-11.8 sec Prothrombin Time INR 1.73 H 0.9-1.15 Activated Partial Thromboplast Time 30.7 24.5-34.5 SEC POC Glucose 170 H 70-106 mg/dl White Blood Count 7.0 4.4-10.8 10^3/uL Red Blood Count 3.44 L 4.5-5.90 10^6/uL Hemoglobin 10.9 L 13.5-17.5 g/dL Hematocrit 32.8 L 41.0-53.0 % Mean Corpuscular Volume 95.3 80.0-100.0 fL Mean Corpuscular Hemoglobin 31.7 28.0-32.0 pg Mean Corpuscular Hemoglobin Concent 33.3 32.0-36.0 g/dL Red Cell Distribution Width 14.8 H 11.8-14.3 % Platelet Count 239 140-450 10^3/uL Mean Platelet Volume 8.2 6.9-10.8 fL Neutrophils (%) (Auto) 76.7 37.0-80.0 % Lymphocytes (%) (Auto) 13.4 10.0-50.0 % Monocytes (%) (Auto) 7.7 0.0-12.0 % Eosinophils (%) (Auto) 1.5 0.0-7.0 % Basophils (%) (Auto) 0.7 0.0-2.0 % Neutrophils # (Auto) 5.4 1.6-8.6 10 ^3/uL Lymphocytes # (Auto) 0.9 0.4-5.4 10 ^3/uL Monocytes # (Auto) 0.5 0-1.3 10 ^3/uL Eosinophils # (Auto) 0.1 0-0.8 10 ^3/uL Basophils # (Auto) 0 0-0.2 10 ^3/uL Nucleated Red Blood Cells 0.0 % Urine Color Light-yellow Yellow Urine Clarity Clear Clear Urine pH 5.5 5.0-9.0 Urine Specific High View 1.015 1.001-1.035 Urine Protein 1+ H Negative Urine Ketones Negative Negative Urine Blood Negative Negative /uL Urine Nitrite Negative Negative Urine Bilirubin Negative Negative Urine Urobilinogen Normal Negative mg/dL Urine Leukocyte Esterase Negative Negative /uL Urine RBC 1 0 - 3 /hpf Urine Microscopic WBC < 1 0-3 /HPF Urine Squamous Epithelial Cells Few <5 /hpf Urine Bacteria None seen None Seen /hpf Urine Glucose Normal Normal mg/dL Sodium Level 146 H 136-145 mmol/L Potassium Level 3.9 3.5-5.1 mmol/L Chloride Level 113 H 98-107 mmol/L Carbon Dioxide Level 23 20-31 mmol/L Anion Gap 10 5-15 Blood Urea Nitrogen 13 9-23 mg/dL Creatinine 1.53 H 0.700-1.30 mg/dL Glomerular Filtration Rate Calc 45 >90 mL/min BUN/Creatinine Ratio 8.5 L 10.0-20.0 Serum Glucose 161 H 74-106 mg/dL Calcium Level 9.6 8.7-10.4 mg/dL Total Bilirubin 0.7 0.2-1.0 mg/dL Aspartate Amino Transferase (AST) 16 13-40 U/L Alanine Aminotransferase (ALT) 12 7-40 U/L Alkaline Phosphatase 113 46-116 U/L Total Protein 6.7 5.7-8.2 g/dL Albumin 4.5 3.2-4.8 g/dL SEPSIS Sepsis Screen Physician Orders Admit (02/28/25 09:17) Patient Condition Stable (02/28/25:17) Vital Signs .PER UNIT PROTOCOL (02/28/25 09:17) Weight-Bearing Restrictions (02/28/25:17) Cefazolin 1gm/50ml (Ancef) (02/28/25 09:30) Acetaminophen Tablet (Tylenol Tablet) (02/28/25:30) Oxycodone W/ Acet 5/325mg Tab (Percocet (02/28/25 09:30) Ondansetron Hcl (Zofran) (02/28/25 09:30) Docusate Sodium Capsule (Colace Capsule) (02/28/25 10:00) Pt Request For Service (02/28/25:17) Call/Page Hospitalist/Atten Fo (02/28/25:17) Sequential Compression Device (02/28/25:17) Pelvis Ap (02/28/25 11:00) Incentive Spirometry (02/28/25:17) Enoxaparin Sodium (Lovenox) (02/28/25 10:00) Basic Metabolic Panel (03/01/25 04:00) Complete Blood Count (03/01/25 04:00) Nitroglycerin Sublingual (Ntrostat Subli (02/28/25 09:30) Morphine Sulfate Injection (02/28/25 09:30) Stat Ekg For Chest Pain (02/28/25 09:17) Notify Md Of Changes From Base (02/28/25 09:17) Senior Network Systems Engineer For 24 Hours (02/28/25:17) Emergency Dysrhythmia Protocol (02/28/25:17) Rhythm Strips Once Every Shift (02/28/25 09:17) Oxygen By Nasal Cannula (02/28/25:17) Oxygen By Face Mask (02/28/25 10:59) Group Worker (02/28/25 10:59) Notify Anesth. For Changes: (02/28/25 10:59) Pulse Ox Assessment (02/28/25 10:59) Bear Hugger For Temp <94.5f (02/28/25 10:59) May Have Head Of Bed Up (02/28/25 10:59) Follow Iv With Surgeon Orders (02/28/25 10:59) Discharge To Room Per Criteria (02/28/25 10:59) Morphine Sulfate Injection (02/28/25 11:00) Lactated Ringer's (02/28/25 13:15) Hydromorphone Injection (Dilaudid Inject (02/28/25 13:15) * Cardiology Consult (02/28/25 13:06) Metoprolol Xl Succinate (Toprol Xl) (03/01/25 10:00) Sacubitril-Valsartan (Entresto 24-26 Mg (02/28/25 22:00) Digoxin Tablet (Lanoxin Tablet) (03/01/25 10:00) Allopurinol Tablet (Zyloprim Tablet) (03/01/25 10:00) Complete Blood Count (03/01/25 06:00) Comprehensive Metabolic Panel (03/01/25 06:00) PTPTT (03/01/25 04:00) Chest Portable (03/01/25 06:00) 2 Gm Sodium Diet (02/28/25 Lunch) Digoxin (Lanoxin) (03/01/25 06:00) Vital Signs Date Time Temp Pulse Resp B/P (MAP) Pulse Ox O2 Delivery O2 Flow Rate FiO2 02/28/25 11:17 66 19 150/80 02/28/25 11:05 64 19 150/84 02/28/25 10:32 62 12 94 Mask 8.0 02/28/25 10:32 Mask 8.0 94 02/28/25 06:49 98.5 88 18 144/87 (106) 99 98.5 Medications Medications Dose Ordered Sig/Ramona Route Start Time Stop Time Status Last Admin Dose Admin Acetaminophen 1,000 mg ONCE ONCE IV 02/28/25 07:15 02/28/25 07:28 DC 02/28/25 08:00 1,000 MG Bupivacaine HCl 50 ml STK-MED ONCE .ROUTE 02/28/25 07:19 02/28/25 07:16 DC 02/28/25 09:18 40 ML Cefazolin Sodium/ Dextrose 50 ml @ ud STK-MED ONCE IV 02/28/25 06:58 02/28/25 06:56 DC 02/28/25 08:20 Cefepime HCl 50 ml @ ud STK-MED ONCE IV 02/28/25 08:01 02/28/25 07:59 DC 02/28/25 08:30 Celecoxib 400 mg ONCE ONCE PO 02/28/25 07:15 02/28/25 07:28 OH 02/28/25 08:00 400 MG Hydromorphone HCl 0.5 mg Q10M PRN IV 02/28/25 11:00 02/28/25 11:41 DC 02/28/25 11:17 0.5 MG Ketorolac Tromethamine 30 mg STK-MED ONCE .ROUTE 02/28/25 07:17 02/28/25 07:14 DC 02/28/25 09:18 30 MG Morphine Sulfate 5 mg STK-MED ONCE .ROUTE 02/28/25 08:58 02/28/25 08:55 OH 02/28/25 09:18 5 MG Pregabalin 300 mg ONCE ONCE PO 02/28/25 07:15 02/28/25 07:28 DC 02/28/25 08:00 300 MG Tranexamic Acid 20 ml @ ud STK-MED ONCE .ROUTE 02/28/25 07:19 02/28/25 07:16 DC 02/28/25 09:24 Vancomycin HCl 2,000 mg STK-MED ONCE .ROUTE 02/28/25 07:17 02/28/25 07:14 DC 02/28/25 09:21 2,000 MG Assessment/Plan Assessment/Plan see dictated note Plan discussed with: Patient My Orders Orders - CYNTHIA MOORE MD Procedure Category Date Status Time Lactated Ringer's PHA 02/28/25 Logged 13:15 Hydromorphone PHA 02/28/25 Logged Injection (Dilaudid 13:15 * Cardiology Consult CONS 02/28/25 Transmitted 13:06 Metoprolol Xl PHA 03/01/25 Logged Succinate (Toprol Xl) 10:00 Sacubitril-Valsartan PHA 02/28/25 Logged (Entresto 24-26 Mg 22:00 Digoxin Tablet PHA 03/01/25 Transmitted (Lanoxin Tablet) 10:00 Allopurinol Tablet PHA 03/01/25 Transmitted (Zyloprim Tablet) 10:00 Complete Blood Count LAB 03/01/25 Verified 06:00 Comprehensive LAB 03/01/25 Verified Metabolic Panel 06:00 PTPTT LAB 03/01/25 Verified 04:00 Chest Portable XY 03/01/25 Logged 06:00 2 Gm Sodium Diet DIET 02/28/25 Transmitted Lunch Digoxin (Lanoxin) LAB 03/01/25 Verified 06:00 Date of Service: Feb 28, 2025 Billing Provider: CYNTHIA MOORE MD Common Visit Codes: [id number] INP/OBS CARE (HIGH) Secondary Visit Codes: [id number] CARE PLAN 30 MINUTES CYNTHIA MOORE MD Feb 28, 2025 13:12
--- NOTE | 2025-02-28 13:31 | DVHHP ---
ADMIT DATE: 02/28/2025 HISTORY OF PRESENT ILLNESS: The patient is an 84-year-old gentleman who was admitted after he underwent surgery on the left hip for DJD of the hip. The patient at this time denies any significant pain. No chest pain. No shortness of breath. No nausea or vomiting. REVIEW OF SYSTEMS: Review of rest systems otherwise currently negative. PAST MEDICAL HISTORY: Significant for hypertension, hyperlipidemia, congestive heart failure, sleep apnea, gout, and previous placement. MEDICATIONS: Include allopurinol, Lipitor, digoxin, Lasix, gabapentin, metformin, metoprolol, Entresto, Coumadin. ALLERGIES: No known drug allergies. SOCIAL HISTORY: Denies smoking or alcohol. Lives at home with his . FAMILY HISTORY: Negative. PHYSICAL EXAMINATION: GENERAL: The patient is awake and alert. VITAL SIGNS: Temperature of 98.5, pulse 66 per minute, blood pressure 150/84. SHEENT: Unremarkable. There is no No JVD. No pedal edema. LUNGS: Equal bilaterally. No added sounds. CARDIOVASCULAR: S1 and S2 is regular. ABDOMEN: Soft. There is no organomegaly. NEUROLOGIC: Nonfocal. MUSCULOSKELETAL: There is a dressing at the site of left hip surgery. ASSESSMENT AND PLAN: * Chronic systolic/diastolic heart failure. The patient will continue on Entresto. * Hypertension. * Hyperlipidemia. * Gout. * CKD stage IIIB. * Obesity. * Sleep apnea. * Questionable atrial fibrillation. * History of pacemaker. 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 * Advance care planning. The patient is a full code-Time spent was 18 minutes. MD JAQUI Scott/CADENCE TID: [id number] RECEIPT: [id number] [facility]
--- NOTE | 2025-02-28 14:20 | DVHPN2 ---
Progress Note - Dictate Date Seen: Feb 28, 2025 Medical Necessity Reason Pt with a Central, PICC or Fol: No Subjective PT WITH DJD NOW S/P ELECTIVE L HIP REPLACEMENT PMH; ORG HEART DISEASE HTN HX OF AFIB CAD SSS S/P PPI GOUT SLEEP APNEA CKD II vital signs Vital Sign Date Time Temp Pulse Resp B/P (MAP) Pulse Ox O2 Delivery O2 Flow Rate FiO2 02/28/25 11:17 66 19 150/80 02/28/25 11:12 Room Air 0 98 02/28/25 10:32 94 02/28/25 06:49 98.5 98.5 Total Intake and Output 02/27/25 02/27/25 02/28/25 15:00 23:00 07:00 Intake Total 100 ml Balance 100 ml medications Current Medications Medications Dose Ordered Sig/Ramona Route Start Time Stop Time Status Last Admin Dose Admin Cefazolin Sodium 50 ml @ 50 mls/hr Q6H IV 02/28/25 09:30 02/28/25 22:29 Acetaminophen 650 mg Q6HP PRN PO 02/28/25 09:30 Oxycodone/ Acetaminophen 1 tab Q4HP PRN PO 02/28/25 09:30 Ondansetron HCl 4 mg Q6HP PRN IV 02/28/25 09:30 Docusate Sodium 100 mg Q12HR PO 02/28/25 10:00 Enoxaparin Sodium 40 mg DAILY SC 02/28/25 10:00 Nitroglycerin 0.4 mg Q5MINP PRN SL 02/28/25 09:30 Morphine Sulfate 2 mg Q30M PRN IV 02/28/25 09:30 Morphine Sulfate 2 mg Q4H PRN IV 02/28/25 11:00 02/28/25 15:01 Lactated Ringer's 1,000 ml @ 75 mls/hr [id number] IV 02/28/25 13:15 Hydromorphone HCl 1 mg Q3HP PRN IV 02/28/25 13:15 Metoprolol Succinate 50 mg DAILY PO 03/01/25 10:00 Sacubitril/ Valsartan 1 tab BID PO 02/28/25 22:00 Digoxin 0.125 mg DAILY PO 03/01/25 10:00 UNV Allopurinol 100 mg DAILY PO 03/01/25 10:00 UNV laboratory and microbiology Laboratory Tests 02/25/25 09:20 Test 02/25/25 09:20 Range/Units Serum Glucose 161 H 74-106 mg/dL Problem List DJD NOW S/P ELECTIVE L HIP REPLACEMENT PMH; ORG HEART DISEASE HTN HX OF AFIB CAD SSS S/P PPI GOUT SLEEP APNEA CKD II Assessment/Plan SERIAL H/H PT PAIN MANAGEMENT ABX Reviewed lab: MCV, MCH, MCHC are normal. Monitor Morphine Sulfate 2MG,IV. Plan discussed with: Patient CHOLO EASTON MD Feb 28, 2025 14:20
[2025-02-28] MEDS: LACTATED RINGER'S 1,000 ML IV SCH (17:00)
[2025-02-28] MEDS: ACCU-CHEK COMFORT CURVE STRIP VI ONE (17:07)
[2025-02-28] MEDS: ceFAZolin 1GM/50ML 50 ML IV SCH ×2 (17:14→22:27)
[2025-02-28] MEDS: SACUBITRIL-VALSARTAN 24mg/26mg TAB PO SCH (22:28)
[2025-03-01] VITALS (18 sets, daily range): BP systolic 107–139; BP diastolic 63–82; PULSE 63–82; RESP 17–20; TEMP 97.7–98.8; O2SAT 94–98
[2025-03-01] MEDS: OXYCODONE W/ ACETAMINOPHEN 5/325MG TABLET PO PRN (06:46)
[2025-03-01 07:44] LABS: Hematocrit 28.4 % (41.0-53.0); Hemoglobin 9.3 g/dL (13.5-17.5); Mean Corpuscular Hemoglobin 31.3 pg (28.0-32.0); Mean Corpuscular Volume 95.3 fL (80.0-100.0); Nucleated Red Blood Cells % 0.0 %
[2025-03-01 07:50] LABS: Alanine Aminotransferase 12 U/L (7-40); Alkaline Phosphatase 90 U/L (46-116); Anion Gap 11 (5-15); Carbon Dioxide 25 mmol/L (20-31); Sodium 144 mmol/L (136-145)
[2025-03-01 07:51] LABS: BUN/Creatinine Ratio 8.5 (10.0-20.0); Blood Urea Nitrogen 13 mg/dL (9-23)
[2025-03-01 07:52] LABS: Albumin 3.5 g/dL (3.2-4.8)
[2025-03-01 07:53] LABS: Bilirubin, Total 0.5 mg/dL (0.2-1.0)
[2025-03-01 07:54] LABS: INR 1.98 (0.9-1.15); Partial Thromboplastin Time 33.1 SEC (24.5-34.5); Prothrombin Time 19.6 sec (9.3-11.8)
[2025-03-01 07:56] LABS: Calcium 8.1 mg/dL (8.7-10.4); Chloride 108 mmol/L (98-107); Glucose 145 mg/dL (74-106); Potassium 3.5 mmol/L (3.5-5.1); Total Protein 5.3 g/dL (5.7-8.2)
--- NOTE | 2025-03-01 08:41 | DVH ---
INDICATION: chf TECHNIQUE: Frontal view of the chest. COMPARISON: None FINDINGS: Left-sided pacemaker. Cardiomegaly. There is no evidence of pleural disease. The lungs are clear. The bony structures of the chest are intact without fracture. IMPRESSION: 1. Cardiomegaly with CHF.
[2025-03-01] MEDS: ALLOPURINOL 100 MG TAB PO SCH (11:25)
[2025-03-01] MEDS: METOPROLOL SUCCINATE XL 50 MG TAB PO SCH (11:26)
[2025-03-01] MEDS: DIGOXIN 0.125 MG TAB PO SCH (11:26)
[2025-03-01] MEDS: HYDROmorphone HCL 2 MG/ML VL/or syr IV PRN (12:43)
--- NOTE | 2025-03-01 13:06 | DVHPN2 ---
Progress Note - Dictate Date Seen: Mar 01, 2025 Medical Necessity Reason Pt with a Central, PICC or Fol: No Subjective PT WITH DJD NOW S/P ELECTIVE L HIP REPLACEMENT PMH; ORG HEART DISEASE HTN HX OF AFIB CAD SSS S/P PPI GOUT SLEEP APNEA CKD II vital signs Vital Sign Date Time Temp Pulse Resp B/P (MAP) Pulse Ox O2 Delivery O2 Flow Rate FiO2 03/01/25 12:47 98.2 80 20 121/70 (87) 97 98.2 02/28/25 20:00 Nasal Cannula* 2 28 Total Intake and Output 02/28/25 02/28/25 03/01/25 15:00 23:00 07:00 Intake Total 120 ml 1150 ml Output Total 225 ml Balance 120 ml -225 ml 1150 ml medications Current Medications Medications Dose Ordered Sig/Ramona Route Start Time Stop Time Status Last Admin Dose Admin Acetaminophen 650 mg Q6HP PRN PO 02/28/25 09:30 Oxycodone/ Acetaminophen 1 tab Q4HP PRN PO 02/28/25 09:30 03/01/25 06:46 1 TAB Ondansetron HCl 4 mg Q6HP PRN IV 02/28/25 09:30 Docusate Sodium 100 mg Q12HR PO 02/28/25 10:00 03/01/25 11:25 100 MG Enoxaparin Sodium 40 mg DAILY SC 02/28/25 10:00 03/01/25 11:27 40 MG Nitroglycerin 0.4 mg Q5MINP PRN SL 02/28/25 09:30 Morphine Sulfate 2 mg Q30M PRN IV 02/28/25 09:30 Lactated Ringer's 1,000 ml @ 75 mls/hr [id number] IV 02/28/25 13:15 02/28/25 17:00 75 MLS/HR Hydromorphone HCl 1 mg Q3HP PRN IV 02/28/25 13:15 03/01/25 12:43 1 MG Metoprolol Succinate 50 mg DAILY PO 03/01/25 10:00 03/01/25 11:26 50 MG Sacubitril/ Valsartan 1 tab BID PO 02/28/25 22:00 03/01/25 11:26 1 TAB Digoxin 0.125 mg DAILY PO 03/01/25 10:00 03/01/25 11:26 0.125 MG Allopurinol 100 mg DAILY PO 03/01/25 10:00 03/01/25 11:25 100 MG laboratory and microbiology Laboratory Tests 03/01/25 06:45 Test 03/01/25 06:45 Range/Units Serum Glucose 145 H 74-106 mg/dL Problem List DJD NOW S/P ELECTIVE L HIP REPLACEMENT PMH; ORG HEART DISEASE HTN HX OF AFIB CAD SSS S/P PPI GOUT SLEEP APNEA CKD II Assessment/Plan SERIAL H/H PT PAIN MANAGEMENT ABX Reviewed lab: MCV, MCH, MCHC are normal. Monitor Hydromorphone HCL 1 MG, IV. Plan discussed with: Patient CHOLO EASTON MD Mar 01, 2025 13:06
--- NOTE | 2025-03-01 13:42 | DVHPN2 ---
Progress Note Date Seen: Mar 01, 2025 Medical Necessity Reason Pt with a Central, PICC or Fol: No Subjective Patient reports: No new complaints Review of Systems: HEENT:Normal, CVS:Normal, RESPIRATORY:Normal, GI:Normal, :Normal, MSK:Normal, NEURO:Normal Objective vital signs Vital Sign Date Time Temp Pulse Resp B/P (MAP) Pulse Ox O2 Delivery O2 Flow Rate FiO2 03/01/25 12:47 98.2 80 20 121/70 (87) 97 98.2 03/01/25 08:10 Room Air* 0 21 Total Intake and Output 02/28/25 02/28/25 03/01/25 15:00 23:00 07:00 Intake Total 120 ml 1150 ml Output Total 225 ml Balance 120 ml -225 ml 1150 ml medications Current Medications Medications Dose Ordered Sig/Ramona Route Start Time Stop Time Status Last Admin Dose Admin Acetaminophen 650 mg Q6HP PRN PO 02/28/25 09:30 Oxycodone/ Acetaminophen 1 tab Q4HP PRN PO 02/28/25 09:30 03/01/25 06:46 1 TAB Ondansetron HCl 4 mg Q6HP PRN IV 02/28/25 09:30 Docusate Sodium 100 mg Q12HR PO 02/28/25 10:00 03/01/25 11:25 100 MG Enoxaparin Sodium 40 mg DAILY SC 02/28/25 10:00 03/01/25 11:27 40 MG Nitroglycerin 0.4 mg Q5MINP PRN SL 02/28/25 09:30 Morphine Sulfate 2 mg Q30M PRN IV 02/28/25 09:30 Lactated Ringer's 1,000 ml @ 75 mls/hr [id number] IV 02/28/25 13:15 02/28/25 17:00 75 MLS/HR Hydromorphone HCl 1 mg Q3HP PRN IV 02/28/25 13:15 03/01/25 12:43 1 MG Metoprolol Succinate 50 mg DAILY PO 03/01/25 10:00 03/01/25 11:26 50 MG Sacubitril/ Valsartan 1 tab BID PO 02/28/25 22:00 03/01/25 11:26 1 TAB Digoxin 0.125 mg DAILY PO 03/01/25 10:00 03/01/25 11:26 0.125 MG Allopurinol 100 mg DAILY PO 03/01/25 10:00 03/01/25 11:25 100 MG Examination: GENERAL:Normal, HEENT:Normal, NECK:Normal, LUNGS:Normal, CVS:Normal, ABDOMEN:Normal, MSK:Normal, MSK:Abnormal (left hip dressing), SKIN:Normal, NEURO:Normal, :Normal laboratory and microbiology Laboratory Tests 03/01/25 06:45 Test 03/01/25 06:45 Range/Units Serum Glucose 145 H 74-106 mg/dL Problem List/Assessment/Plan Problem List/Assessment/Plan * Chronic systolic/diastolic heart failure. The patient will continue on Entresto. * Hypertension. * Hyperlipidemia. * Gout. * CKD stage IIIB. * Obesity. * Sleep apnea. * Questionable atrial fibrillation. * History of pacemaker. 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 * Advance care planning. The patient is a full code-Time spent was 18 minutes. Plan discussed with: Patient, Spouse My Orders My Orders Orders - CYNTHIA MOORE MD Procedure Category Date Status Time Basic Metabolic Panel LAB 03/02/25 Verified 06:00 Complete Blood Count LAB 03/02/25 Verified 06:00 * [employer] CONS 03/01/25 Transmitted Consult Date of Service: Mar 01, 2025 Billing Provider: CYNTHIA MOORE MD Common Visit Codes: [id number] INP/OBS CARE(HIGH) Secondary Visit Codes: [id number] CARE PLAN 30 MINUTES CYNTHIA MOORE MD Mar 01, 2025 13:42
[2025-03-02] VITALS (7 sets, daily range): BP systolic 112–146; BP diastolic 64–88; PULSE 75–81; RESP 16–19; TEMP 98.1–99.6; O2SAT 96–100
[2025-03-02 07:12] LABS: Chloride 107 mmol/L (98-107); Potassium 3.6 mmol/L (3.5-5.1); Sodium 141 mmol/L (136-145)
[2025-03-02 07:13] LABS: Anion Gap 8 (5-15); Carbon Dioxide 26 mmol/L (20-31)
[2025-03-02 07:19] LABS: BUN/Creatinine Ratio 10.7 (10.0-20.0); Blood Urea Nitrogen 18 mg/dL (9-23)
[2025-03-02 07:20] LABS: Calcium 8.0 mg/dL (8.7-10.4); Glucose 159 mg/dL (74-106); Hematocrit 25.9 % (41.0-53.0); Hemoglobin 8.6 g/dL (13.5-17.5); Mean Corpuscular Hemoglobin 31.6 pg (28.0-32.0); Mean Corpuscular Volume 94.8 fL (80.0-100.0); Nucleated Red Blood Cells % 0.0 %
--- NOTE | 2025-03-02 07:34 | DVHPN2 ---
Progress Note Date Seen: Mar 02, 2025 Medical Necessity Reason Pt with a Central, PICC or Fol: No Subjective Patient reports: No new complaints Objective vital signs Vital Sign Date Time Temp Pulse Resp B/P (MAP) Pulse Ox O2 Delivery O2 Flow Rate FiO2 03/02/25 05:00 98.1 75 17 141/78 (99) 100 98.1 03/01/25 20:00 Nasal Cannula* 2 28 Total Intake and Output 03/01/25 03/01/25 03/02/25 15:00 23:00 07:00 Intake Total 630 ml 200 ml Output Total 200 ml 980 ml Balance 430 ml -780 ml medications Current Medications Medications Dose Ordered Sig/Ramona Route Start Time Stop Time Status Last Admin Dose Admin Acetaminophen 650 mg Q6HP PRN PO 02/28/25 09:30 Oxycodone/ Acetaminophen 1 tab Q4HP PRN PO 02/28/25 09:30 03/01/25 06:46 1 TAB Ondansetron HCl 4 mg Q6HP PRN IV 02/28/25 09:30 Docusate Sodium 100 mg Q12HR PO 02/28/25 10:00 03/01/25 22:38 100 MG Enoxaparin Sodium 40 mg DAILY SC 02/28/25 10:00 03/01/25 11:27 40 MG Nitroglycerin 0.4 mg Q5MINP PRN SL 02/28/25 09:30 Morphine Sulfate 2 mg Q30M PRN IV 02/28/25 09:30 Hydromorphone HCl 1 mg Q3HP PRN IV 02/28/25 13:15 03/01/25 20:43 1 MG Metoprolol Succinate 50 mg DAILY PO 03/01/25 10:00 03/01/25 11:26 50 MG Sacubitril/ Valsartan 1 tab BID PO 02/28/25 22:00 03/01/25 22:38 1 TAB Digoxin 0.125 mg DAILY PO 03/01/25 10:00 03/01/25 11:26 0.125 MG Allopurinol 100 mg DAILY PO 03/01/25 10:00 03/01/25 11:25 100 MG Examination: GENERAL:Normal, MSK:Abnormal laboratory and microbiology Laboratory Tests 03/02/25 06:23 Test 03/02/25 06:23 Range/Units Serum Glucose 159 H 74-106 mg/dL Problem List/Assessment/Plan Problem List/Assessment/Plan 84 year old male who is s/p Left FCO POD 1 1. Pain control 2. WBAT LLE with use of walker 3. Continue with PT, patient was unable to ambulate yesterday 4. DVT ppx 5. clear for d/c from orthopedic standpoint-recommending SNF as patient will likely require additional assistance with the following recommendations: POSTOPERATIVE Posterior Total Hip INSTRUCTIONS Activity: 1. You can bear as much weight as you tolerate on your hip unless specifically instructed otherwise. You may use the walking aid which you were discharged with and switch to a cane whenever you feel comfortable doing so. You should use an assistive device until you can walk comfortably without it. Keep in mind that every patient moves at their own speed of recovery so take your time. 2. A physical therapist will visit you at home. 3. Although guarantees against a dislocation do not exist, the hip was noted to be sufficiently stable in surgery. Below are motions that you should dischargenot do for 4-6 weeks, depending on the surgical approach used. If there are questions, please call the office. a. Bend forward past 90 degrees b. Sit on a regular low chair, couch, car seat etc... c. Cross your legs d. Use a regular low toilet seat. e. Sleep on your stomach or on either side. 3. High impact activity such as jumping, aerobics, tennis, and skiing are not permitted during the first 3 months after surgery. These activities can contribute to accelerated wear and should be done with caution after this time. Discuss this with your surgeon if you have questions. 4. Although a bath or whirlpool is NOT permitted during the first 2-3 weeks, you may shower as soon as you get home from the hospital provided you are able to keep your bandage clean and dry and there is no wound drainage. If you are unable to place a secured covering over your bandage bed bath/sponge bath may likely be the more appropriate option. 5. Swimming is not permitted until the wound is healed, which typically occurs approximately 3-4 weeks after surgery. Wound Management: If the wound is draining please change the gauze pad on the wound until it stops. If drainage persists past 10 days please notify our office. If there is a sticky gel dressing over your wound, you may leave this in place for as long as it is clean and dry. If it becomes loose or causes skin irritation, it is OK to remove it and place clean gauze over your wound. 1. You might notice some bruising around the surgical site, this is normal. 2. Check your temperature on a daily basis. Please note that a low-grade temp below 101 is not uncommon after surgery especially during the first 3 days. Notify the office if your temperature spikes above 101.5 after the 3rd post- operative date. 3. Many patients experience significant swelling in the thigh, this may extend below the knee and sometimes to the ankle. Swelling increases during the first week and subsides during the following week. 4. Provided you have been on a blood thinner since surgery and have been up and about at least three times per day, the risk of a blood clot is low and this swelling is an expected part of recovery. It will largely or completely resolve by your first post-operative visit. 5. Liya, if present, will be removed at 2 weeks during initial post-op visit. Medications: 1. You will be discharged with pain medication, Aspirin as a blood thinner and sometimes an anti-inflammatory medication such as Celebrex or Mobic might be prescribed. Please follow the instructions regarding these medicines as provided by your nurse at the hospital. 2. Narcotic pain medication has side effects, including constipation. Please ensure you continue to take stool softeners (Colace, Senna) while taking your pain medication to help protect against constipation. Getting up and moving around at least a few times per day helps with this also. 3. Lovenox 40 Sq x 12 days followed by one regular strength 325 mg coated aspirin daily for 4 weeks after surgery. Then, take one baby aspirin, 81 mg daily for 6 weeks more. A major, yet preventable, complication of Orthopaedic Surgery is a blood clot (DVT). It is important not to miss any doses of this important medication. 4. You should restart all of your prescription medications once discharged unless specifically instructed otherwise. 5. Herbal supplements may be restarted 2 weeks after surgery. Miscellaneous issues: 1. Driving is not permitted within the first 2 weeks. 2. Your first postoperative visit will take place 2weeks after discharge. Please call the office to arrange this appointment. 3. Antibiotic preventative treatment is required before dental or other invasive procedures. Please ask your surgeon about this at your first postoperative visit. Your hip replacement contains metal which may activate metal detectors. You may wish to carry a letter from your surgeon to communicate this to security personnel. If you experience chest pain, shortness of breath or severe painful calf swelling, go to the nearest emergency room to be evaluated. Please call our office once your situation is stabilized. Plan discussed with: Patient Date of Service: Mar 02, 2025 Billing Provider: PHILIP AHUJA MD Common Visit Codes: NOT BILLABLE DURGA RUIZ NP Mar 02, 2025 07:34
--- NOTE | 2025-03-02 12:18 | DVHPN2 ---
Progress Note Date Seen: Mar 02, 2025 Medical Necessity Reason Pt with a Central, PICC or Fol: No Subjective Patient reports: No new complaints Review of Systems: HEENT:Normal, CVS:Normal, RESPIRATORY:Normal, GI:Normal, :Normal, MSK:Normal, NEURO:Normal Objective vital signs Vital Sign Date Time Temp Pulse Resp B/P (MAP) Pulse Ox O2 Delivery O2 Flow Rate FiO2 03/02/25 09:52 76 19 140/88 03/02/25 09:00 99.6 98 99.6 03/02/25 08:00 Nasal Cannula* 2 28 Total Intake and Output 03/01/25 03/01/25 03/02/25 15:00 23:00 07:00 Intake Total 630 ml 200 ml Output Total 200 ml 980 ml Balance 430 ml -780 ml medications Current Medications Medications Dose Ordered Sig/Ramona Route Start Time Stop Time Status Last Admin Dose Admin Acetaminophen 650 mg Q6HP PRN PO 02/28/25 09:30 Oxycodone/ Acetaminophen 1 tab Q4HP PRN PO 02/28/25 09:30 03/01/25 06:46 1 TAB Ondansetron HCl 4 mg Q6HP PRN IV 02/28/25 09:30 Docusate Sodium 100 mg Q12HR PO 02/28/25 10:00 03/02/25 09:48 100 MG Enoxaparin Sodium 40 mg DAILY SC 02/28/25 10:00 03/02/25 09:49 40 MG Nitroglycerin 0.4 mg Q5MINP PRN SL 02/28/25 09:30 Morphine Sulfate 2 mg Q30M PRN IV 02/28/25 09:30 Hydromorphone HCl 1 mg Q3HP PRN IV 02/28/25 13:15 03/02/25 09:52 1 MG Metoprolol Succinate 50 mg DAILY PO 03/01/25 10:00 03/02/25 09:49 50 MG Sacubitril/ Valsartan 1 tab BID PO 02/28/25 22:00 03/02/25 09:48 1 TAB Digoxin 0.125 mg DAILY PO 03/01/25 10:00 03/02/25 09:49 0.125 MG Allopurinol 100 mg DAILY PO 03/01/25 10:00 03/02/25 09:49 100 MG Examination: GENERAL:Normal, HEENT:Normal, NECK:Normal, LUNGS:Normal, CVS:Normal, ABDOMEN:Normal, MSK:Normal, SKIN:Normal, NEURO:Normal, :Normal laboratory and microbiology Laboratory Tests 03/02/25 06:23 Test 03/02/25 06:23 Range/Units Serum Glucose 159 H 74-106 mg/dL Problem List/Assessment/Plan Problem List/Assessment/Plan * Chronic systolic/diastolic heart failure. The patient will continue on Entresto. * Hypertension. * Hyperlipidemia. * Gout. * CKD stage IIIB. * Obesity. * Sleep apnea. * Questionable atrial fibrillation: coumadin * History of pacemaker. 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 * Advance care planning. The patient is a full code-Time spent was 18 minutes. Plan discussed with: Patient, Spouse My Orders My Orders Orders - CYNTHIA MOORE MD Procedure Category Date Status Time * Personal Lines Appraiser CONS 03/01/25 Transmitted Consult * Personal Lines Appraiser CONS 03/02/25 Transmitted Consult Basic Metabolic Panel LAB 03/03/25 Verified 06:00 Complete Blood Count LAB 03/03/25 Verified 06:00 Warfarin Per Rx PHA 03/02/25 Transmitted Protocol (Coumadin 12:15 Furosemide Tablet PHA 03/02/25 Transmitted (Lasix Tablet) 12:15 Furosemide Tablet PHA 03/03/25 Transmitted (Lasix Tablet) 10:00 Date of Service: Mar 02, 2025 Billing Provider: CYNTHIA MOORE MD Common Visit Codes: [id number] INP/OBS CARE(HIGH) CYNTHIA MOORE MD Mar 02, 2025 12:18
[2025-03-02] MEDS: FUROSEMIDE 20 MG TAB PO ONE (13:28)
--- NOTE | 2025-03-02 13:53 | DVHPN2 ---
Progress Note - Dictate Date Seen: Mar 02, 2025 Medical Necessity Reason Pt with a Central, PICC or Fol: No Subjective PT WITH DJD NOW S/P ELECTIVE L HIP REPLACEMENT PMH; ORG HEART DISEASE HTN HX OF AFIB CAD SSS S/P PPI GOUT SLEEP APNEA CKD II vital signs Vital Sign Date Time Temp Pulse Resp B/P (MAP) Pulse Ox O2 Delivery O2 Flow Rate FiO2 03/02/25 13:28 146/86 03/02/25 10:22 79 19 03/02/25 09:00 99.6 98 99.6 03/02/25 08:00 Nasal Cannula* 2 28 Total Intake and Output 03/01/25 03/01/25 03/02/25 15:00 23:00 07:00 Intake Total 630 ml 200 ml Output Total 200 ml 980 ml Balance 430 ml -780 ml medications Current Medications Medications Dose Ordered Sig/Ramona Route Start Time Stop Time Status Last Admin Dose Admin Acetaminophen 650 mg Q6HP PRN PO 02/28/25 09:30 Oxycodone/ Acetaminophen 1 tab Q4HP PRN PO 02/28/25 09:30 03/01/25 06:46 1 TAB Ondansetron HCl 4 mg Q6HP PRN IV 02/28/25 09:30 Docusate Sodium 100 mg Q12HR PO 02/28/25 10:00 03/02/25 09:48 100 MG Enoxaparin Sodium 40 mg DAILY SC 02/28/25 10:00 03/02/25 09:49 40 MG Nitroglycerin 0.4 mg Q5MINP PRN SL 02/28/25 09:30 Morphine Sulfate 2 mg Q30M PRN IV 02/28/25 09:30 Hydromorphone HCl 1 mg Q3HP PRN IV 02/28/25 13:15 03/02/25 09:52 1 MG Metoprolol Succinate 50 mg DAILY PO 03/01/25 10:00 03/02/25 09:49 50 MG Sacubitril/ Valsartan 1 tab BID PO 02/28/25 22:00 03/02/25 09:48 1 TAB Digoxin 0.125 mg DAILY PO 03/01/25 10:00 03/02/25 09:49 0.125 MG Allopurinol 100 mg DAILY PO 03/01/25 10:00 03/02/25 09:49 100 MG Warfarin Sodium RX PROTOCOL PER PHARMACY PO 03/02/25 12:15 Furosemide 20 mg DAILY PO 03/03/25 10:00 laboratory and microbiology Laboratory Tests 03/02/25 06:23 Test 03/02/25 06:23 Range/Units Serum Glucose 159 H 74-106 mg/dL Problem List DJD NOW S/P ELECTIVE L HIP REPLACEMENT PMH; ORG HEART DISEASE HTN HX OF AFIB CAD SSS S/P PPI GOUT SLEEP APNEA CKD II Assessment/Plan SERIAL H/H PT PAIN MANAGEMENT ABX Reviewed lab: MCV, MCH, MCHC are normal. Monitor Hydromorphone HCL 1 MG, IV. Plan discussed with: Patient CHOLO EASTON MD Mar 02, 2025 13:53
[2025-03-02 14:24] LABS: INR 1.31 (0.9-1.15); Partial Thromboplastin Time 38.4 SEC (24.5-34.5); Prothrombin Time 13.5 sec (9.3-11.8)
[2025-03-02] MEDS: ACETAMINOPHEN 325 MG TAB PO PRN (17:46)
[2025-03-02] MEDS: WARFARIN SODIUM 5 MG TAB PO ONE (17:47)
[2025-03-03 01:00] VITALS: BP 143/92; PULSE 75; RESP 16; TEMP 98.6; O2SAT 96
[2025-03-03 05:00] VITALS: BP 138/82; PULSE 76; RESP 17; TEMP 98.6; O2SAT 97
[2025-03-03 06:52] LABS: Anion Gap 9 (5-15); Carbon Dioxide 28 mmol/L (20-31); Sodium 144 mmol/L (136-145)
[2025-03-03 06:55] LABS: Chloride 107 mmol/L (98-107); Potassium 3.3 mmol/L (3.5-5.1)
[2025-03-03 06:56] LABS: Calcium 8.7 mg/dL (8.7-10.4)
[2025-03-03 06:58] LABS: BUN/Creatinine Ratio 11.3 (10.0-20.0); Blood Urea Nitrogen 16 mg/dL (9-23)
[2025-03-03 06:59] LABS: Glucose 148 mg/dL (74-106)
[2025-03-03 07:12] LABS: Hematocrit 26.2 % (41.0-53.0); Hemoglobin 9.0 g/dL (13.5-17.5); Mean Corpuscular Hemoglobin 32.5 pg (28.0-32.0); Mean Corpuscular Volume 94.2 fL (80.0-100.0); Nucleated Red Blood Cells % 0.0 %
[2025-03-03 07:15] LABS: INR 1.21 (0.9-1.15); Partial Thromboplastin Time 36.5 SEC (24.5-34.5); Prothrombin Time 12.6 sec (9.3-11.8)
[2025-03-03 08:00] VITALS: PULSE 72; PULSE 75; RESP 16; O2SAT 98
[2025-03-03 09:00] VITALS: BP 120/70; PULSE 75; RESP 16; TEMP 98.9; O2SAT 97
[2025-03-03] MEDS: FUROSEMIDE 20 MG TAB PO SCH (09:40)
[2025-03-03 13:00] VITALS: BP 125/79; PULSE 82; RESP 17; TEMP 98.5; O2SAT 97
--- NOTE | 2025-03-03 13:19 | DVHPN2 ---
Progress Note - Dictate Date Seen: Mar 03, 2025 Medical Necessity Reason Pt with a Central, PICC or Fol: No Subjective PT WITH DJD NOW S/P ELECTIVE L HIP REPLACEMENT PMH; ORG HEART DISEASE HTN HX OF AFIB CAD SSS S/P PPI GOUT SLEEP APNEA CKD II vital signs Vital Sign Date Time Temp Pulse Resp B/P (MAP) Pulse Ox O2 Delivery O2 Flow Rate FiO2 03/03/25 10:27 70 16 116/74 03/03/25 09:00 98.9 97 98.9 03/03/25 08:00 Nasal Cannula* 1 24 Total Intake and Output 03/02/25 03/02/25 03/03/25 15:00 23:00 07:00 Intake Total 1000 ml 200 ml Output Total 600 ml 1325 ml Balance 400 ml -1125 ml medications Current Medications Medications Dose Ordered Sig/Ramona Route Start Time Stop Time Status Last Admin Dose Admin Acetaminophen 650 mg Q6HP PRN PO 02/28/25 09:30 03/02/25 17:46 650 MG Oxycodone/ Acetaminophen 1 tab Q4HP PRN PO 02/28/25 09:30 03/03/25 12:29 1 TAB Ondansetron HCl 4 mg Q6HP PRN IV 02/28/25 09:30 Docusate Sodium 100 mg Q12HR PO 02/28/25 10:00 03/03/25 09:39 100 MG Nitroglycerin 0.4 mg Q5MINP PRN SL 02/28/25 09:30 Morphine Sulfate 2 mg Q30M PRN IV 02/28/25 09:30 Hydromorphone HCl 1 mg Q3HP PRN IV 02/28/25 13:15 03/03/25 09:57 1 MG Metoprolol Succinate 50 mg DAILY PO 03/01/25 10:00 03/03/25 09:40 50 MG Sacubitril/ Valsartan 1 tab BID PO 02/28/25 22:00 03/03/25 09:39 1 TAB Digoxin 0.125 mg DAILY PO 03/01/25 10:00 03/03/25 09:39 0.125 MG Allopurinol 100 mg DAILY PO 03/01/25 10:00 03/03/25 09:39 100 MG Warfarin Sodium RX PROTOCOL PER PHARMACY PO 03/02/25 12:15 Furosemide 20 mg DAILY PO 03/03/25 10:00 03/03/25 09:40 20 MG laboratory and microbiology Laboratory Tests 03/03/25 05:54 Test 03/03/25 05:54 Range/Units Serum Glucose 148 H 74-106 mg/dL Problem List DJD NOW S/P ELECTIVE L HIP REPLACEMENT PMH; ORG HEART DISEASE HTN HX OF AFIB CAD SSS S/P PPI GOUT SLEEP APNEA CKD II Assessment/Plan SERIAL H/H PT PAIN MANAGEMENT ABX NEEDS IN PATIENT REHAB Reviewed lab: MCV, MCHC, PLTs are normal. Monitor Hydromorphone HCL 1 MG, IV. Plan discussed with: Patient CHOLO EASTON MD Mar 03, 2025 13:19
--- NOTE | 2025-03-03 15:23 | DVHDS2 ---
Discharge Summary Date of Admission Feb 28, 2025 at 09:17 Date of Discharge: Mar 03, 2025 Labs/Diagnostic Data: Laboratory Results Test 03/03/25 05:54 03/01/25 06:45 02/28/25 17:05 02/25/25 09:20 White Blood Count 10.7 10^3/uL (4.4-10.8) Red Blood Count 2.78 10^6/uL (4.5-5.90) Hemoglobin 9.0 g/dL (13.5-17.5) Hematocrit 26.2 % (41.0-53.0) Mean Corpuscular Volume 94.2 fL (80.0-100.0) Mean Corpuscular Hemoglobin 32.5 pg (28.0-32.0) Mean Corpuscular Hemoglobin Concent 34.5 g/dL (32.0-36.0) Red Cell Distribution Width 14.9 % (11.8-14.3) Platelet Count 177 10^3/uL (140-450) Mean Platelet Volume 9.2 fL (6.9-10.8) Neutrophils (%) (Auto) 80.5 % (37.0-80.0) Lymphocytes (%) (Auto) 7.7 % (10.0-50.0) Monocytes (%) (Auto) 10.3 % (0.0-12.0) Eosinophils (%) (Auto) 1.2 % (0.0-7.0) Basophils (%) (Auto) 0.3 % (0.0-2.0) Neutrophils # (Auto) 8.6 10 ^3/uL (1.6-8.6) Lymphocytes # (Auto) 0.8 10 ^3/uL (0.4-5.4) Monocytes # (Auto) 1.1 10 ^3/uL (0-1.3) Eosinophils # (Auto) 0.1 10 ^3/uL (0-0.8) Basophils # (Auto) 0 10 ^3/uL (0-0.2) Nucleated Red Blood Cells 0.0 % Prothrombin Time 12.6 sec (9.3-11.8) Prothrombin Time INR 1.21 (0.9-1.15) Activated Partial Thromboplast Time 36.5 SEC (24.5-34.5) Sodium Level 144 mmol/L (136-145) Potassium Level 3.3 mmol/L (3.5-5.1) Chloride Level 107 mmol/L (98-107) Carbon Dioxide Level 28 mmol/L (20-31) Anion Gap 9 (5-15) Blood Urea Nitrogen 16 mg/dL (9-23) Creatinine 1.41 mg/dL (0.700-1.30) Glomerular Filtration Rate Calc 49 mL/min (>90) BUN/Creatinine Ratio 11.3 (10.0-20.0) Serum Glucose 148 mg/dL (74-106) Calcium Level 8.7 mg/dL (8.7-10.4) Total Bilirubin 0.5 mg/dL (0.2-1.0) Aspartate Amino Transferase (AST) 21 U/L (13-40) Alanine Aminotransferase (ALT) 12 U/L (7-40) Alkaline Phosphatase 90 U/L (46-116) Total Protein 5.3 g/dL (5.7-8.2) Albumin 3.5 g/dL (3.2-4.8) Digoxin Level 0.71 ng/mL (0.8-2) POC Glucose 176 mg/dl (70-106) Urine Color Light-yellow (Yellow) Urine Clarity Clear (Clear) Urine pH 5.5 (5.0-9.0) Urine Specific [place] 1.015 (1.001-1.035) Urine Protein 1+ (Negative) Urine Ketones Negative (Negative) Urine Blood Negative /uL (Negative) Urine Nitrite Negative (Negative) Urine Bilirubin Negative (Negative) Urine Urobilinogen Normal mg/dL (Negative) Urine Leukocyte Esterase Negative /uL (Negative) Urine RBC 1 /hpf (0 - 3) Urine Microscopic WBC < 1 /HPF (0-3) Urine Squamous Epithelial Cells Few /hpf (<5) Urine Bacteria None seen /hpf (None Seen) Urine Glucose Normal mg/dL (Normal) Other Laboratory Tests 03/03/25 05:54 Brief Hx & Hospital Course: SEE DICTATED NOTE Condition at Discharge: Fair Final Diagnosis/Problems List HIP SURGERY Discharge Disposition: Residential Facility Discharge Instruct/Medications Diet: Cardiac 2g Na,low cholest Activity: No Restrictions, As Tolerated Follow Up/Referral: FU WITH PCP/ORTHO Medications: PER MAR Scheduled Acetaminophen (Tylenol 8 Hour Arthritis), 650 MG PO PRN, (Reported) Allopurinol (Allopurinol), 300 MG PO DAILY, (Reported) Amlodipine Besylate (Amlodipine Besylate), 10 MG PO DAILY, (Reported) Atorvastatin Calcium (Lipitor), 40 MG PO DAILY, (Reported) Cholecalciferol (Vitamin D-3), 2,000 UNIT PO DAILY, (Reported) Cyanocobalamin (Vitamin B12), 1,000 MCG PO DAILY, (Reported) Furosemide (Furosemide), 20 MG OR DAILY, (Reported) Gabapentin (Gabapentin), 600 MG PO Q6HR, (Reported) Metformin Hydrochloride (Metformin Hcl Er), 2 TAB PO BID, (Reported) Metoprolol Succinate (Toprol Xl), 50 MG PO DAILY, (Reported) Multiple Vitamin (Multivitamins), 1 TAB PO DAILY, (Reported) Oxycodone HCl (Oxaydo), 5 MG PO BID, (Reported) Potassium Chloride (Klor-Con Tablet), 8 MEQ PO BID, (Reported) Sacubitril-Valsartan (Entresto 24-26 mg), 1 TAB PO BID, (Reported) Tolterodine Tartrate (Tolterodine Tartrate ER), 4 MG PO DAILY, (Reported) Tramadol HCl (Tramadol HCl), 50 MG PO PRN, (Reported) Warfarin Sodium (Warfarin Sodium), 2 TAB PO DAILY, (Reported) Scheduled PRN Loperamide Hcl (Loperamide Hcl), 2 MG PO BID PRN for LOOSE STOOL, (Reported) Miscellaneous Medications Ascorbic Acid (Vitamin C Tablet), 1,000 MG PO, (Reported) Calcium Acetate (Phoslo Capsule), 600 MG PO, (Reported) Digoxin (Digoxin), 125 MCG PO, (Reported) Multiple Vitamins W/ Minerals (Preservision Areds 2), 1 2 PO, (Reported) Discharge Statement: "Patient was advised to return to the ER or call 911 if any headaches, dizziness, shortness of breath, chest pain, abdominal pain, bleeding, fevers, or worsening of medical condition. Patient was counseled about treatment plan, medications, possible side effects, patientverbalized understanding. All questions were answered to the best of my ability. This discharge took greater then 30 minutes in planning, reviewing documentation, counseling the patient, and discussing with other team members." ASSESSMENT ASSESSMENT Assessment HIP SURGERY Date of Service: Mar 03, 2025 Billing Provider: CYNTHIA MOORE MD Common Visit Codes: [id number] DISCH DAY >30min CYNTHIA MOORE MD Mar 03, 2025 15:23
--- NOTE | 2025-03-03 15:48 | DVHDS ---
DATE OF DISCHARGE: 03/03/2025 DATE OF TRANSFER: 03/03/2025 HISTORY OF PRESENT ILLNESS: The patient is an 84-year-old gentleman who was admitted after he underwent surgery on the left hip for DJD of the hip. He has a history of hypertension, hyperlipidemia, congestive heart failure, gout, sleep apnea, and CKD. HOSPITAL COURSE: The patient did well postoperatively. The patient's hemoglobin is 9.2 at the time of transfer. The patient was seen in Cardiology consult by Dr. Newberry. Creatinine has remained at about 1.5. The patient will now be transferred to rehab for further treatment. FINAL DIAGNOSES: Therefore: * Chronic systolic/diastolic heart failure. * Hypertension. * Hyperlipidemia. * Gout. * CKD stage 3B. * Anemia. * Obesity. * Sleep apnea. * Questionable atrial fibrillation. * History of pacemaker. 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 Time spent in discharge planning and review of plan with the patient and at the bedside was 39 minutes. MD JAQUI Scott/AZUL TID: [id number] RECEIPT: [id number]
[2025-03-03] MEDS: WARFARIN SODIUM 2.5 MG TAB PO ONE (16:34)
[2025-03-03] MEDS: POTASSIUM CHL 20 Meq TABLET PO ONE (16:34)
[2025-03-03 17:00] VITALS: BP 140/86; PULSE 70; RESP 16; TEMP 98.3; O2SAT 96
== END 2025-03-03 19:22 | DRG 470 ==
LOC: SUR 06:06 → OVERFLOW 09:17 → TELE-WESTW 18:18
PROVIDERS: ADMIT Internal Medicine; ATTEND Internal Medicine
PROC: 0SRB0JZ Replacement of Left Hip Joint with Synthetic Substitute, Open Approach (ICD-10-PCS; principal; 2025-02-28 08:11)
DX: M16.12 Unilateral primary osteoarthritis, left hip (principal); I50.42 Chronic combined systolic (congestive) and diastolic (congestive) heart failure; I13.0 Hypertensive heart and chronic kidney disease with heart failure and stage 1 through stage 4 chronic kidney disease, or unspecified chronic kidney disease; M10.9 Gout, unspecified; E78.5 Hyperlipidemia, unspecified; N18.32 Chronic kidney disease, stage 3b; E66.9 Obesity, unspecified; G47.30 Sleep apnea, unspecified; I48.91 Unspecified atrial fibrillation; I25.10 Atherosclerotic heart disease of native coronary artery without angina pectoris; D64.9 Anemia, unspecified; Z79.899 Other long term (current) drug therapy; Z95.0 Presence of cardiac pacemaker; Z68.33 Body mass index [BMI] 33.0-33.9, adult
CPT/HCPCS: 36415; 71045; 72170; 80048; 80053; 80162; 81001; 82962; 85025; 85610; 85730; 86850; 86900; 86901; 97110; 97116; 97163; 97530; G0378; J0131; J0330; J1885; J2250; J2405; J3490